=== PATIENT | male | born 1965 | race Caucasian/White ===

== ENCOUNTER → 2018-11-28 | Outpatient (CLI) | payer SELFPAY ==
[2018-11-28 09:32] VITALS: BMI 29.3
[2018-11-28 12:16] LABS: Hematocrit 46.8 % (40-54); Hemoglobin 16.1 g/dL (13.0-16.5); Mean Corp Hgb Conc 34.4 g/dL (32-36); Mean Corpuscular Hgb 29.8 pg (27.0-32.0); Mean Corpuscular Volume 86.7 fL (80-94); Mean Platelet Vol. 10.1 fl (6.2-12.0); Platelet Count 200 K/mm3 (150-450); RBC Distribution Width CV 12.6 % (11.6-14.6); RBC Distribution Width SD 39.5 fl (35.1-43.9); White Blood Count 6.1 K/mm3 (4.4-11.0)
[2018-11-28 12:53] LABS: ALB/GLOB Ratio 1.1 RATIO (0.9-2.4); AST(SGOT) 18 U/L (15-37); Alanine Aminotransfer ALT/SGPT 29 U/L (16-61); Albumin, Serum 3.7 g/dL (3.2-5.0); Alkaline Phosphatase 66 U/L (45-117); Anion Gap 6 (5-15); BUN 11 mg/dL (7-18); BUN/Creat Ratio 9.4 RATIO (10-20); Calcium,Total 8.7 mg/dL (8.5-10.1); Chloride 109 mmol/L (98-107); Creatinine, Serum 1.17 mg/dL (0.70-1.30); EST Glomerular Filtration Rate 69 mL/min (>60); Est Glom Filt Rate - Afr Amer 83 mL/min (>60); Globulin 3.3 g/dL (2.2-4.2); Glucose 94 mg/dL (74-106); Potassium 4.2 mmol/L (3.5-5.1); Sodium Level 141 mmol/L (136-145); Thyroid Stim Hormone (TSH) 1.52 uIU/mL (0.358-3.74)
[2018-12-01 20:07] LABS: Testosterone, Free 19.52 ng/dL (5.00-21.00)
[2018-12-02 09:29] LABS: Testosterone, % Free 4.56 % (1.50-4.20); Testosterone, Total 428 ng/dL (264-916)
== END | disposition home or self-care (01) ==
LOC: BIMLAB 09:54
PROVIDERS: PCP Family Medicine; Visit Provider Nurse Practitioner Family
DX: N52.9 Male erectile dysfunction, unspecified (principal)
CPT/HCPCS: 36415; 80053; 84402; 84403; 84443; 85027

== ENCOUNTER 2019-04-22 10:18 | Emergency (ER) | payer SELFPAY ==
[2019-01-30 10:31] VITALS: BMI 29.3
[2019-04-22 10:19] VITALS: BP 145/83; PULSE 61; RESP 18; TEMP 36.6; O2SAT 98; BMI 27.2
--- NOTE | 2019-04-22 11:16 | ED.VIS.GEN ---
History of Present Illness Chief Complaint: General Illness Informant: Patient Onset: Days Maximum Severity: Mild Narrative: The patient complains of external hemorrhoid for the last few days he has had this process before, he is used hemorrhoidal H cream with no improvement he feels if this might be getting larger,. He is had no trauma to the area no history of rectal abscess, prior colonoscopies unremarkable, the last time he had this it was totally thrombosed and he had it excised he has no abdominal pain no other complaints no past history as above Past Medical History - Allergies and Home Meds Allergies/Adverse Reactions: Allergies No Known Allergies Allergy (Verified 04/22/19 10:21) Primary Care Physician: Aric Prieto DO [Primary Care Provider] - Past Medical History: - Smoking Status: Never smoker Review of Systems ROS: - As above General: Denies: Chills, Fever, Sweats Eyes: Denies: Visual changes - bilaterally, Diplopia ENT: Denies: Rhinorrhea, Sore throat Cardiovascular: Denies: Chest pain, Palpitations Respiratory: Denies: Dyspnea, Cough, Dyspnea on exertion Gastrointestinal: Reports: - - Complaint is rectal pain from the hemorrhoid. Denies: Abdominal pain, Nausea, Vomiting, Diarrhea, Melena, Hematochezia Genitourinary: Denies: Dysuria, Hematuria, Frequency Musculoskeletal: Denies: Back pain, Extremity Pain Skin: Denies: Rash, Wounds Neurological: Denies: Headache, Weakness, Numbness Physical Exam Vital Signs/Narrative: Vital Signs Temp Pulse Resp BP Pulse Ox 04/22/19 10:19 98 F 61 18 145/83 H 98 General: Well nourished, Well developed, No Acute Distress Head: Normocephalic, Atraumatic Eyes: Perrl, EOMI ENT: Moist mucous membranes, No rhinorrhea Neck: Supple, Nontender Cardiovascular: Regular rate, Regular rhythm, No murmurs Respiratory: No distress, CTA bilaterally, Chest nontender Abdomen: Soft, Nontender, Nondistended, Normal bowel sounds Rectal: - - Does have a soft hemorrhoid in the rectal area he was not put through rectal exam as I was concerned this would cause him increasing pain, he indicates having normal bowel output through his rectum with no blood there is no abscess apparent as this appears to be a typical hemorrhoid it is not thrombosed is soft Back: Nontender, Normal Inspection Extremities: Nontender, No edema Skin: Normal color, No rash Neurological: Alert, Oriented x3, Cranial nerves II-XII grossly intact, Normal Strength, Normal Sensation Psychological: Normal affect, Normal Mood Diagnostic/Tx/Re-eval - Medical Decision Making I had a long conversation with the patient I explained the nature of this condition, he will be started on anti-Anusol HC suppositories sitz bath's he was given morphine here, he understands that to have this treated it is optimal that he see a surgeon he is given the referral to on-call surgery Dr. Cole and return for change in symptoms ED Disposition - Plan for ED Patient: Diagnosis: Hemorrhoids Instructions: Treating Hemorrhoids: Self-Care, Understanding Hemorrhoids, ANUSOL-HC Suppositories Prescriptions: Hydrocortisone [Anusol Hc] 25 mg RECTAL TID PRN #14 suppos. Prescription Printed Naproxen [Naprosyn] 500 mg PO BID PRN #14 tab Prescription Printed Referrals: Aric Prieto DO [Primary Care Provider] -
[2019-04-22] MEDS: Acetaminophen 500 MG Tablet 1000 MG PO (11:32)
[2019-04-22 11:38] VITALS: BP 129/81; PULSE 63; RESP 17
== END 2019-04-22 11:40 | disposition home or self-care (01) ==
LOC: ED 11:23
PROVIDERS: Emergency Provider Emergency Medicine; PCP Family Medicine
DX: K64.4 Residual hemorrhoidal skin tags (principal)
CPT/HCPCS: 99283

== ENCOUNTER 2019-05-29 07:54 | Day surgery (SDC) | payer OTHER, SELFPAY ==
[2019-05-07 09:16] VITALS: BMI 27.2
--- NOTE | 2019-05-07 09:30 | HP_ITS ---
Intake Vital Signs 05/07/19 BMI 27.2 05/07/19 Height 6 ft 5 in 05/07/19 Weight: 230 lb 4 oz 05/07/19 BMI 27.3 05/07/19 BP 121/76 H 05/07/19 Blood Pressure Location Rt brachial 05/07/19 Position Sitting 05/07/19 Respiration 18 05/07/19 Pulse 60 05/07/19 Pulse Oximetry (%) 98 Intake Visit Reasons: Hemorrhoids Chief Complaint: hemorrhoids Front Worker Required: No Is patient in pain?: No Allergies No Known Allergies Allergy (Verified 05/07/19 09:15) Medications loratadine 10 mg tablet 10 mg PO DAILY PRN 11/28/18 [History Confirmed 05/07/19] Albuterol Inhaler [Ventolin Hfa (SP)] 1 - 2 puff INHALATION Q4H PRN PRN 04/22/19 [History Confirmed 05/07/19] Hydrocortisone [Anusol Hc] 25 mg RECTAL TID PRN #14 suppos. 04/22/19 [Rx Confirmed 05/07/19] aspirin 81 mg tablet,delayed release 81 mg PO DAILY 05/07/19 [History Confirmed 05/07/19] PFSH Medical History (Updated 05/07/19 @ 09:13 by Mindy Hutchins) SOB (shortness of breath) (Acute) Seasonal allergies (Chronic) Hemorrhoid (Acute) Hay fever (Acute) Surgical History (Updated 05/07/19 @ 09:13 by Mindy Hutchins) History of colonoscopy (Acute ~2011) Family History Mother Breast cancer Colon cancer Father Heart disease Grandmother Diabetes Social History (Updated 05/07/19 @ 09:[address] Fernando Ritchie MD) Smoking Status: Never smoker alcohol intake: current alcohol intake frequency: a few times a week Alcohol type: beer substance use type: does not use what type of physical activity do you participate in: yoga frequency: 3-4 times per week HPI HPI HPI: AJ GRANADO is a 53 M who presents to the office today for HPI HPI Surgical H&P: Yes HPI: AJ GRANADO is a 53 M who presents to the office today for hemorrhoids. The patient reports that 2 weeks ago he was in the emergency room and had a very large hemorrhoid that was very painful. Since then it is shrunken and is not causing him pain anymore. He is not having a bleeding per rectum. Patient also reports that he has a family history of colon cancer in his mother diagnosed at age 54. Patient had a colonoscopy about 7 years ago. This was normal. ROS General General: No weight change, appetite, fatigue, colon cancer, breast cancer or weakness HEENT HEENT: No difficulty swallowing, eye injury, eye surgery, swollen glands or hoarseness Endo Endocrine: No thyroid disease, diabetes mellitus, thyroid cancer, Hair loss, heat intolerance or cold intolerance Cardio Cardiovascular: No murmur, pacemaker, heart disease, atrial fibrillation, high blood pressure, heart attack, heart stent, palpitations, shortness of breat with exertion or chest pain Psych Psychiatric: No depression, anxiety or hearing voices Resp Respiratory: No shortness of breath, No sleep apnea, No cough, No COPD, No asthma, No emphysema, No wheezing Gastro Gastrointestinal: No abdominal pain, No nausea or vomiting, No diarrhea, No constipation, No blood in stool, No acid reflux, Yes hemorrhoids, No ulcers, No gallbladder problem, No black,tarry stools Dwight Hematologic: No blood thinners, No blood disorders, No bleeding, No anemia, No blood clots Neuro Neurologic: No weakness Exam Const General: cooperative Orientation: alert, oriented x3 Resp Effort & Inspection: normal respiratory effort Auscultation: clear to auscultation bilaterally Cardio Rate: regular rate Rhythm: regular rhythm Heart Sounds: no murmurs GI Inspection: non-distended Palpation: soft, nontender Other: On rectal exam the patient has small thrombosis of external hemorrhoids which are nontender Assessment & Plan Problems 1. Hemorrhoids, unspecified hemorrhoid type K64.9 2. Family history of malignant neoplasm of colon in first degree relative diagnosed when younger than 60 years of age Z80.0 Plan The patient has 2 external thrombosed hemorrhoids. The blood clot in each of these are less than 1 cm in diameter. There is no tenderness or skin breakdown. The patient reports no bleeding. He says these have been improving and he is not currently having any pain. I did offer him excision but he would like to wait and see if they resolve fully. I do recommend that the patient have a surveillance colonoscopy. As the patient's family member was diagnosed under age 60 it is recommended that he repeat colonoscopies every 5 years. I explained endoscopy in detail to the patient. I explained the risks including but not limited to stroke or heart attack with anesthesia, perforation of the GI tract, bleeding, infection. I explained that any of these could necessitate further emergency surgery. The patient understands and all questions were answered sufficiently. The patient wishes to proceed with procedure. Fernando Ritchie MD Pager: [facility] [address] [place] [address], [address] [place] [address] Office: Orders Orders: Colonoscopy Today K64.9, Z80.0 Coding Level of Care Code Off vis,new,level 3 Diagnoses Hemorrhoids, unspecified hemorrhoid type K64.9 ??Hemorrhoid type: unspecified Family history of malignant neoplasm of colon in first degree relative diagnosed when younger than 60 years of age Z80.0 05/07/19 0931 <Electronically signed by Fernando hsu MD> Date _ Fernando Ritchie MD I have re-examined the patient. There are no clinical changes since date of exam.
[2019-05-29] VITALS (7 sets, daily range): BP systolic 101–128; BP diastolic 63–80; PULSE 59–74; RESP 16–18; TEMP 36.3–37.1; O2SAT 95–97; BMI 26.5
[2019-05-29] MEDS: Lactated Ringers 1,000 ML 100 ML IV (08:37)
--- NOTE | 2019-05-29 09:20 | OP.COLON_ITS ---
Patient Name: Simon Lim Procedure Date: 05/29/2019 8:48 AM Date of : 1965 Age: 53 Procedure: Colonoscopy Indications: Screening in patient at increased risk: Colorectal cancer in mother before age 60 Providers: Fernando Ritchie MD Referring MD: Fernando Ritchie MD Medicines: Monitored Anesthesia Care Patient Profile: This is a 53 year old male. Refer to note in patient chart for documentation of history and physical. Last Colonoscopy: several years ago. Complications: No immediate complications. Estimated blood loss: Minimal. Procedure: Pre-Anesthesia Assessment: - Prior to the procedure, a History and Physical was performed, and patient medications and allergies were reviewed. The patient's tolerance of previous anesthesia was also reviewed. The risks and benefits of the procedure and the sedation options and risks were discussed with the patient. All questions were answered, and informed consent was obtained. Prior Anticoagulants: The patient has taken no previous anticoagulant or antiplatelet agents. After reviewing the risks and benefits, the patient was deemed in satisfactory condition to undergo the procedure. After I obtained informed consent, the scope was passed under direct vision. Throughout the procedure, the patient's blood pressure, pulse, and oxygen saturations were monitored continuously. The pediatric colonoscope was introduced through the anus and advanced to the cecum, identified by appendiceal orifice and ileocecal valve. The colonoscopy was performed without difficulty. The patient tolerated the procedure well. The quality of the bowel preparation was good. Scope In: 8:59:38 AM Scope Withdrawal Time 0 hours 6 minutes 7 seconds Scope Out: 9:17:46 AM Total Procedure Duration Time 0 hours 18 minutes 8 seconds Findings: The entire examined colon appeared normal on direct and retroflexion views. Impression: - The entire examined colon is normal on direct and retroflexion views. - No specimens collected. Recommendation: - Discharge patient to home. - Resume previous diet. - Continue present medications. - Repeat colonoscopy in 5 years for screening purposes. Procedure Code(s): --- Professional --- 25987, Colonoscopy, flexible; diagnostic, including collection of specimen(s) by brushing or washing, when performed (separate procedure) Diagnosis Code(s): --- Professional --- Z80.0, Family history of malignant neoplasm of digestive organs CPT copyright 2017 [employer]. All rights reserved. The codes documented in this report are preliminary and upon data coder operator review may be revised to meet current compliance requirements. Fernando Ritchie MD 05/29/2019 9:20:21 AM This report has been signed electronically. Number of Addenda: 0 Note Initiated On: 05/29/2019 8:48 AM
--- NOTE | 2019-05-29 09:20 | OP.CCLET_ITS ---
05/29/2019 Aric Prieto Re : Colonoscopy procedure for Simon Lim Dear Dr. Prieto This procedure was performed on Wednesday, May 29, 2019. My impressions and recommendations are as follows: Impressions : - The entire examined colon is normal on direct and retroflexion views. - No specimens collected. Recommendations : - Discharge patient to home. - Resume previous diet. - Continue present medications. - Repeat colonoscopy in 5 years for screening purposes. My findings are described in the full procedure note, which is enclosed. If I can be of further assistance, please feel free to contact me at Doctor phone number(s): , Work: . Sincerely, Fernando Ritchie MD 05/29/2019 9:20:21 AM This report has been signed electronically.
== END 2019-05-29 09:57 | disposition home or self-care (01) ==
LOC: EN 07:55 → AC 07:55
PROVIDERS: PCP Family Medicine; Referring Provider Surgery; Visit Provider Surgery
PROC: 0DJD8ZZ Inspection of Lower Intestinal Tract, Via Natural or Artificial Opening Endoscopic (ICD-10-PCS; CPT 45378; principal; 2019-05-29 08:55)
DX: Z12.11 Encounter for screening for malignant neoplasm of colon (principal); K64.9 Unspecified hemorrhoids; Z80.0 Family history of malignant neoplasm of digestive organs
CPT/HCPCS: 45378; J7120; J2405

== ENCOUNTER 2022-02-05 15:30 | Outpatient (RCR) | payer OTHER, SELFPAY ==
--- NOTE | 2022-01-04 18:16 | HP.PTEVAL ---
Patient's Visit Information AJ GRANADO is a 56 year old M referred to Physical Therapy by HEMAL Long with a diagnosis of MUSCLE SPASM. Date of Evaluation: 01/04/22 Physical Therapist: Cuong Vickers, PT, Cert MDT, OCS - Visit Plan Frequency: 2x /Week Duration: 4 Weeks Plan: PT INTERVENTIONS CERVICAL ROM ,POSTURAL EX'S /FLEXABLITY ,THORACIC MOBILITY ,MANUAL THERAPY , STRENGTHENING AND MODALTIES MODALTIES TO INCLUDE ICTX 17# -25# - Subjective This 56 y/o male presents to physical therapy with neck pain and spasms. Patient has has cervical pain several years. Patient is active with working out and housework . Patient DR recommended PT thought muscle tension . Recommended muscle relaxer. Denies paresthesia/tingling . Pain located right cervical spine radiating to UT . Aggravating factors sleeping on right turning neck right. Thus sleeping is affected . Alleviating factors rest and muscle relaxer. Denies WICK/dizziness/tinnitus. No trauma . No prior treatment. No prior diagnostics. Patient symptoms affects QOL and function. SOCIAL: . 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 NEURO: denies paresthesia/tingling ,reflexes C5-6-7 2/3. PALAPTION: tender UT/levator /paraspinals right. BUE AROM: WFL. MMT: grossly 5/5. CERVICAL ROM: flexion WFL , extension mod loss ,right rotation mod loss right left min loss with pain right ,lateral flexion mod loss ,retraction min loss - Special Tests C/S Radiculapathy - Left Upper limb tension test: Negative C/S Radiculapathy - Right Upper limb tension test: Negative C/S Radiculapathy - Left Spurlings: Negative C/S Radiculapathy - Right Spurlings: Positive C/S Radiculapathy - Left Cervical distraction: Negative C/S Radiculapathy - Right Cervical distraction: Negative C/S Radiculapathy - Left Relief test: Negative C/S Radiculapathy - Right Relief test: Negative Sharp Mercedes: Negative Vertebral Artery Test: Negative Alar Ligament Test: Negative - Balance/Special Test Scores Oswestry Neck Score: 13 - Goals Goal 1:: I with HEP for cervical spine Goal Time Frame: 4-6 Weeks Goal 2:: Patient to improve cervical ROM for function of recovery min loss with rotation to drive car Goal Time Frame: 4-6 Weeks Goal 3:: Patient to demonstrate 50% improvement with improved function with less pain Goal Time Frame: 4-6 Weeks Goal 4:: Patient to improve neck oswestry score by 5 points or > to improve function and QOL Goal Time Frame: 4-6 Weeks - Rehabilitation Potential Physical Therapy Diagnosis: This patient has possible right lateral stenosis with with pain right UT with rotation with pain with positioning and motion testing thus benefit from skilled PT Rehabilitation Potential: Good - Anticipated Interventions Patient/Client Instruction: Educate patient on: Condition, Plan of Care For the Purpose of:: To decrease pain, To increase ROM, To improve muscle performance and motor function, To improve ability to perform ADL's, To increase tolerance to activity/condition/position, To improve ability of physical actions for home/community/work/leisure, To improve health of tissue, To decrease soft tissue restriction, To increase flexibility/ROM Therapeutic Exercise to Include: Strength training, Postural training, Flexibilty training, Passive ROM, Active ROM For the Purpose of:: To decrease pain, To increase ROM, To improve muscle performance and motor function, To increase tolerance to activity/condition/position, To improve ability of physical actions for home/community/work/leisure, To improve health of tissue, To decrease soft tissue restriction, To increase flexibility/ROM, To prevent re-injury Manual Therapy Techniques to Include: Mobilization, Soft tissue mobilization Comment: CERVICAL/LEVATOR For the Purpose of:: To increase ROM, To improve nutrient delivery to tissue, To increase oxygenation perfusion, To improve health of tissue, To decrease soft tissue restriction TENS: Yes IF ES: Yes Thermo therapy (hot pack): Yes Ultrasound (thermal/non thermal): Yes Intermittent cervical traction: Yes For the Purpose of:: To decrease pain, To increase ROM, To improve health of tissue, To decrease soft tissue restriction Thank you for the opportunity to evaluate your patient. For Medicare and Medicare HMO plans, please review the plan of care and approve it. It will need to be FAXED BACK to us at [phone] for Medicare purposes. For Medicare only, by signing this I certify the plan of care. Please let me know if there are questions or concerns regarding this plan of care. Physician Signature: Date:
--- NOTE | 2022-03-26 11:22 | HP.PT.NRP ---
AJ GRANADO was seen in my office for initial evaluation on 01/04/22. The following Plan of Care was established for this patient: Initial Frequency: 2x /Week Initial Duration: 4 Weeks Patient/Client Instruction: Educate patient on: Condition, Plan of Care For the Purpose of:: To decrease pain, To increase ROM, To improve muscle performance and motor function, To improve ability to perform ADL's, To increase tolerance to activity/condition/position, To improve ability of physical actions for home/community/work/leisure, To improve health of tissue, To decrease soft tissue restriction, To increase flexibility/ROM Therapeutic Exercise to Include: Strength training, Postural training, Flexibilty training, Passive ROM, Active ROM For the Purpose of:: To decrease pain, To increase ROM, To improve muscle performance and motor function, To increase tolerance to activity/condition/position, To improve ability of physical actions for home/community/work/leisure, To improve health of tissue, To decrease soft tissue restriction, To increase flexibility/ROM, To prevent re-injury Manual Therapy Techniques to Include: Mobilization, Soft tissue mobilization Comment: CERVICAL/LEVATOR For the Purpose of:: To increase ROM, To improve nutrient delivery to tissue, To increase oxygenation perfusion, To improve health of tissue, To decrease soft tissue restriction TENS: Yes IF ES: Yes Thermo therapy (hot pack): Yes Ultrasound (thermal/non thermal): Yes Intermittent cervical traction: Yes For the Purpose of:: To decrease pain, To increase ROM, To improve health of tissue, To decrease soft tissue restriction This patient was last seen in our office . Pertinent comments regarding their Physical therapy will appear below: At this point I will be discontinuing this patient from physical therapy. I would be happy to see this patient again in the future if found appropriate by the physician. Thank you! Cuong Vickers, PT, Cert MDT, OCS Balance/Gait/Functional tests - Balance/Special Test Scores Oswestry Neck Score: 1
== END 2022-02-05 19:00 | disposition home or self-care (01) ==
LOC: PT 15:30
PROVIDERS: PCP Family Medicine; Referring Provider Physician Assistant; Visit Provider Physician Assistant
DX: M62.838 Other muscle spasm (principal)
CPT/HCPCS: 97012; 97035; 97162

== ENCOUNTER → 2022-08-18 | Outpatient (CLI) | payer OTHER, SELFPAY ==
--- NOTE | 2022-08-18 08:18 | CT_ITS ---
STUDY: CT ABDOMEN AND PELVIS WITH CONTRAST REASON FOR EXAM: Male, 56 years old. Right buttock pain. RADIATION DOSAGE (If Supplied By Facility): CTDIvol = ( 17.53 ) mGy, DLP = ( 1284.55 ) mGycm TECHNIQUE: Transaxial images were obtained from the dome of the diaphragm to the symphysis pubis without oral contrast. IV 100mL Isovue-300 was administered. Sagittal and coronal images were reconstructed. Individualized dose optimization techniques were used for this CT. COMPARISON: None. FINDINGS: The visualized lung bases are unremarkable. The visualized portions of the heart are within normal limits. Normal liver. Normal gallbladder and extrahepatic biliary system. Normal spleen. Normal pancreas. Normal bilateral adrenal glands. Normal right kidney. Normal left kidney. Normal visualized stomach. Normal small intestine. Normal colon. The appendix is visualized and appears normal. Normal abdominal aorta. Normal inferior vena cava. Normal retroperitoneum. Normal urinary bladder. There is a small umbilical hernia containing fat. Mild degree of disc space narrowing at the L5-S1 level. CT/Abdomen/Pelvis W IV Cont ONLY IMPRESSION: No acute abnormality is seen. Electronically Signed: Sudhakar Cevallos MD at 15:43 EDT ,
== END | disposition home or self-care (01) ==
PROVIDERS: PCP Family Medicine; Referring Provider Surgery; Visit Provider Surgery
DX: K40.90 Unilateral inguinal hernia, without obstruction or gangrene, not specified as recurrent (principal)
CPT/HCPCS: 74177; Q9967; A4216

== ENCOUNTER → 2023-04-20 | Outpatient (CLI) | payer OTHER, SELFPAY ==
[2023-04-20 16:56] LABS: ALB/GLOB Ratio 1.2 RATIO (0.9-2.4); AST(SGOT) 16 U/L (15-37); Alanine Aminotransfer ALT/SGPT 20 U/L (16-61); Alkaline Phosphatase 68 U/L (45-117); Anion Gap 6 (5-15); BUN 14 mg/dL (7-18); BUN/Creat Ratio 10.9 RATIO (10-20); Calcium,Total 9.1 mg/dL (8.5-10.1); Chloride 107 mmol/L (98-107); Creatinine, Serum 1.28 mg/dL (0.70-1.30); EST Glomerular Filtration Rate 61 mL/min (>60); Est Glom Filt Rate - Afr Amer 74 mL/min (>60); Globulin 3.2 g/dL (2.2-4.2); Glucose 100 mg/dL (74-106); Protein, Total 7.2 g/dL (6.4-8.2); Sodium Level 138 mmol/L (136-145)
== END | disposition home or self-care (01) ==
PROVIDERS: PCP Family Medicine; Visit Provider Family Medicine
DX: Z00.00 Encounter for general adult medical examination without abnormal findings (principal)
CPT/HCPCS: 36415; 80053; 84153

== ENCOUNTER → 2024-07-17 | Outpatient (CLI) | payer OTHER, SELFPAY ==
[2024-07-17 17:25] LABS: ALB/GLOB Ratio 1.6 RATIO (0.9-2.4); AST(SGOT) 19 U/L (<=37); Alanine Aminotransfer ALT/SGPT 12 U/L (<=46); Albumin, Serum 4.1 g/dL (3.4-4.8); Alkaline Phosphatase 62 U/L (40-129); Anion Gap 11 (5-15); BUN 19 mg/dL (4-19); BUN/Creat Ratio 14.5 RATIO (10-20); Calcium,Total 9.2 mg/dL (7.6-11.0); Carbon Dioxide 22.1 mmol/L (21.0-32.0); Chloride 104 mmol/L (98-108); Creatinine, Serum 1.28 mg/dL (0.70-1.20); EST Glomerular Filtration Rate 64 (>60); Globulin 2.5 g/dL (2.2-4.2); Glucose 124 mg/dL (70-99); Potassium 4.3 mmol/L (3.3-5.1); Protein, Total 6.6 g/dL (5.9-8.4); Sodium Level 137 mmol/L (133-145); Total Bilirubin 0.55 mg/dL (0.00-1.30)
== END | disposition home or self-care (01) ==
LOC: BIMLAB 14:35
PROVIDERS: PCP Family Medicine; Referring Provider Family Medicine; Visit Provider Family Medicine
DX: Z00.00 Encounter for general adult medical examination without abnormal findings (principal)
CPT/HCPCS: 36415; 80053

== ENCOUNTER 2024-08-31 10:53 | Day surgery (SDC) | payer OTHER, SELFPAY ==
[2024-08-31] VITALS (9 sets, daily range): BP systolic 94–142; BP diastolic 69–88; PULSE 54–75; RESP 16; TEMP 36.2–36.6; O2SAT 92–98; BMI 27.1
[2024-08-31] MEDS: Lactated Ringers 1,000 ML 15 ML IV (11:28)
--- NOTE | 2024-08-31 11:46 | PRE.ANES_ITS ---
ASA Classification* ASA Classification ASA Classification: 2 Assessment & Plan Anesthesia* Anesthesia Assessment Anesthesia Assessment: Discussed sedation and/or anesthesia options, risks, benefits, and alternatives with patient/parents/legal guardian/POA. Questions invited. The patient/parents/legal guardian/POA seems to understand and agrees to proceed with anesthesia plan. Reviewed the physical assessment, medical history, allergy history and patient home medications list prior to surgery/procedure/anesthetic and documented any changes. Performed airway and anesthesia risk assessments. Anesthesia Type Anesthesia Type: MAC History Source History Obtained from:: Patient and Chart Anesthesia Focused Assessment* Temperature: 97.9 F Pulse Rate: 63 Blood Pressure: 142/88 Respiratory Rate: 16 Pulse Ox: 98 Oxygen Delivery Method: Room Air Airway Assessment Mouth opens: >3 cm Mallampati Score: III Teeth Condition: Intact Neck Range of motion (ROM): Limited ROM (Slight decrease in extension) Focused Labs Anesthesia Preop lab: CBC WBC 6.1 K/mm3 (4.4-11.0) 11/28/18 09:55 11/28/18 RBC 5.40 M/mm3 (4.6-6.2) 11/28/18 09:55 11/28/18 Hgb 16.1 g/dL (13.0-16.5) 11/28/18 09:55 11/28/18 Hct 46.8 % (40-54) 11/28/18 09:55 11/28/18 Plt Count 200 K/mm3 (150-450) 11/28/18 09:55 11/28/18 CHEMISTRY Potassium 4.3 mmol/L (3.3-5.1) 07/17/24 14:36 07/17/24 Sodium 137 mmol/L (133-145) 07/17/24 14:36 07/17/24 BUN 19 mg/dL (4-19) 07/17/24 14:36 07/17/24 Creatinine 1.28 mg/dL (0.70-1.20) H 07/17/24 14:36 Glucose 124 mg/dL (70-99) H 07/17/24 14:36 07/17/24 TSH 1.52 uIU/mL (0.358-3.74) 11/28/18 09:55 COAG Pre-Assessment Diagnosis/Proposed Procedure Planned Operative Procedure(s): CSCOPE Anesthesia History 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 When Was Last Pacemaker Check QUESTION #4 FULL TEXT: You/Your Family Experience fever (hyperthermia) with Anesthesia Last Oral Intake Last Oral intake: Last Oral Intake NPO since Meds taken in AM with sips of No 08/31/24 11:24 water? Meds patient instructed to take am of surgery Any additional information?: Yes NPO since: 08:00 (Patient finished prep at 8 AM.) Meds taken in AM with sips of water?: No PONV PONV - supervisor slitting and shipping: PONV - supervisor slitting and shipping Female No 08/29/24 10:51 HX of Motion Sickness No 08/29/24 10:51 HX of N/V After Surgery No 08/29/24 10:51 Non-Smoker Yes 08/29/24 10:51 Duration of Surgery greater No 08/29/24 10:51 than 60 minutes Number of Risk Factors 1 08/29/24 10:51 PONV Score Low Risk 08/29/24 10:51 Height & Weight Height & Weight: Anesthesia: Height & Weight Height 6 ft 5 in 08/31/24 11:24 Weight: 104 kg 08/31/24 11:24 Body Mass Index (BMI) 27.1 08/31/24 11:24 Respiratory Assessment Respiratory Assessment - supervisor slitting and shipping: Respiratory Tract Infection Hx - supervisor slitting and shipping Hx Respiratory Tract Infection No 08/29/24 10:51 STOP Sleep Apnea STOP Sleep Apnea - supervisor slitting and shipping: STOP Sleep Apnea - supervisor slitting and shipping Hx Hypertension No 08/29/24 10:51 Hx Sleep Apnea No 08/29/24 10:51 CPAP BIPAP Do you snore loudly (louder No 08/29/24 10:51 than talking or can be heard Do you often feel tired/ No 08/29/24 10:51 fatigued/ sleepy during daytime? Has anyone observed you stop No 08/29/24 10:51 breathing during sleep? STOP Results Negative 08/29/24 10:51 QUESTION #5 FULL TEXT : Do you snore loudly (louder than talking or can be heard through closed doors)? 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 Specify any problems Hx of Preganancy in last 3 N/A 08/29/24 10:51 Months Nurse Filling Out Transfusion NBUCHER 08/29/24 10:51 & Questions: Date: 08/29/24 08/29/24 10:51 Time: 10:51 08/29/24 10:51 Patient unable to answer at this time (ie. confused, unrespo /Reproduction History /Reproductive History - supervisor slitting and shipping: /Reproductive Hx- supervisor slitting and shipping Hx Now No 08/29/24 10:51 Gestational Age (in weeks): EDC: Hx Hx Para Hx Section SAB No 08/29/24 10:51 Active Medications Active Medications: Current Medications Generic Name Dose Route Start Last Admin Trade Name Freq PRN Reason Stop Dose Admin Lactated Ringer's 1,000 mls @ 15 mls/hr 08/31/24 11:00 08/31/24 11:28 IV 15 mls/hr .Q48H JANE Administration PFSH Medical History Wears glasses Non-smoker Family history of colon cancer in mother Right inguinal hernia Chronic right hip pain Hemorrhoid Hay fever SOB (shortness of breath) Seasonal allergies Home Medications ?Medication ?Instructions ?Recorded ?Last Taken ?Type NK 06/14/24 Unknown History Allergy/AdvReac Type Severity Reaction Status Date / Time No Known Allergies Allergy Verified 08/31/24 11:22 Family History Mother Breast cancer Colon cancer, Onset Age: 56 Father Heart disease Grandmother Diabetes Brother Colon polyps Surgical History History of oral surgery History of colonoscopy (~2011) Social History adopted: No household members: spouse number of children: 1 current occupational status: employed 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
--- NOTE | 2024-08-31 12:10 | H&P.OPEN ---
HPI - General HPI Narrative AJ GRANADO, is a 58 M who presents for surveillance colonoscopy. His last colonoscopy was 5 years ago and was normal. He has colonoscopies every 5 years due to maternal family history of colon cancer under age 60. He denies abdominal pain or blood in the stool. [facility] Medical History Wears glasses Non-smoker Family history of colon cancer in mother Right inguinal hernia Chronic right hip pain Hemorrhoid Hay fever SOB (shortness of breath) Seasonal allergies Home Medications ?Medication ?Instructions ?Recorded ?Last Taken ?Type NK 06/14/24 Unknown History Allergy/AdvReac Type Severity Reaction Status Date / Time No Known Allergies Allergy Verified 08/31/24 11:22 Family History Mother Breast cancer Colon cancer, Onset Age: 56 Father Heart disease Grandmother Diabetes Brother Colon polyps Surgical History History of oral surgery History of colonoscopy (~2011) Social History adopted: No household members: spouse number of children: 1 current occupational status: employed 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/ [place] pets and animals: No sexually active: Yes Smoking Status: Never smoker alcohol intake: current alcohol intake frequency: a few times a week Alcohol type: beer substance use type: does not use caffeine: Yes (2) Type: coffee what type of physical activity do you participate in: yoga frequency: 3-4 times per week do you feel safe at home: Yes Past Medical/Surgical History Planned Operation Planned Operative Procedure(s): CSCOPE S.O.S: No Previous Hospitalizations/Surgeries HX Hospitalizations: No HX of Surgeries: cscope Any Problems With Anesthesia: No You/Your Family Experience Fever (Hyperthermia) With Anes: No Cholinesterase deficiency: No Cardiovascular Hx Chest Pain within Last 2 months: No Hx of Irregular Heartbeat and/or Afib: No Hx Heart Attack: No Hx Congestive Heart Failure: No Hx Rheumatic Fever: No Hx Hypertension: No Hx Internal Defibrillator: No Hx Pacemaker: No Hx Cardiac Catheterization: No Hx Cardiac Surgery/Stents/Etc.: No Hx Stress Test: No Hx Pain in Legs when Walking/Leg Cramps: No Respiratory Chronic Cough: No HX of Shortness of Breath: No (sob occ prn inhaler) Hoarseness: No Hx Chronic Obstructive Pulmonary Disease (COPD): No Hx Asthma: No Hx Emphysema: No Hx Sleep Apnea: No Hx Respiratory Tract Infection/Cold (presently): No Do You Snore Loudly (louder than talking or can be heard): No Do You Often Feel Tired/ Fatigued/ Sleepy Dring Daytime?: No Has Anyone Observed You Stop Breathing During Sleep?: No Result (for STOP score): Negative Hx Smoking: No Smoking Status: Never smoker Gastrointestinal Hx Gastrointestinal Disorders: No Hx Gastrointestinal Bleed: No Hx Ulcer: No Hx Hiatal Hernia: No Difficulty Chewing/Swallowing: No Special diet followed at home: No Hx Unplanned Weight Loss of 20#: No HX Unplanned Weight Gain of 20#: No Neurological Hx Seizures: No HX Syncope/Blackout Spells/Unconsciousness: No Hx Transient Ischemic Attacks (TIA): No Hx Multiple Sclerosis: No Hx Parkinson's Disease: No Hx Head/Neck Injury: No Hx Headaches: Yes (occ) Hx Back Injury/Pain: No Recent Onset of Speech Difficulty: No Restless Legs: No Does patient have nerve stimulator: No Blood Disorder Hx Leukemia: No Bleeding Tendencies: No Hx Deep Vein Thrombosis: No Hx High Cholesterol: No Blood Transmitted Disease: No Hx Hepatitis: No Hx Cirrhosis: No Hx Anemia: No Hx Blood Disorders: No Reproduction : No Genitourinary Hx Renal Disease: No Musculoskeletal Hx Arthritis: No Hx Rheumatoid Arthritis: No Hx Gout: No Recent Onset of an Orthopedic Problem: No Endocrine Hx Diabetes: No Thyroid Disease: No Hx Steroid Therapy: No Psycho/Social Hx Substance Use: No Hx Alcohol Use: Yes (occ) Hx Anxiety: No Hx Depression: No Mental Illness: No Hx Dementia: No Miscellaneous Hx Cancer: No Recent Exposure to Contagious Disease: No Hx of C-Diff: No Any Loose Teeth: No Allergies No Known Allergies Allergy (Verified 08/31/24 11:22) Discharge Is Pt Admitted From a Snf, or a Senior Living: No After D/C, Where Do you Plan to Go: Return Home Vital Signs Vital Signs Vital Signs: 08/31/24 11:24 08/31/24 11:24 05/30/25 11:52 Temperature 97.9 F 97.9 F Temperature Source Temporal Pulse Rate 63 63 Respiratory Rate 16 16 Respiratory Pattern Normal Blood Pressure 142/88 H 142/88 H Blood Pressure Mean 106 Blood Pressure Source Monitor Blood Pressure Position Sitting Blood Pressure Location Right Arm Pulse Ox 98 98 Oxygen Delivery Method Room Air Room Air Weight Weight: 229 lb 4.492 oz Body Mass Index (BMI) 27.1 Physical Exam Const alert and oriented x3 HEENT normocephalic Eyes PERRL Resp normal respiratory effort and normal air movement Cardio regular rate and regular rhythm GI soft to palpation, non-tender and non-distended Extremity normal to inspection Assessment & Plan Assessment/Plan (1) Encounter for screening for malignant neoplasm of colon: PLAN: I explained endoscopy in detail to the patient. I explained the risks including but not limited to stroke or heart attack with anesthesia, perforation of the GI tract, bleeding, infection. I explained that any of these could necessitate further emergency surgery. The patient understands and all questions were answered sufficiently. The patient wishes to proceed with procedure. Fernando Ritchie MD Pager: [facility] [address] [place] [address], [address] [place] [address] Office: Surgery Risks - Colonoscopy Risks Include but are not Limited To: Risks include but are not limited to: Bleeding, perforation requiring further surgery, inability to complete colonoscopy requiring barium enema.
--- NOTE | 2024-08-31 12:38 | OP.CCLET_ITS ---
08/31/2024 Aric Prieto Re : Colonoscopy procedure for Simon Lim Dear Dr. Prieto This procedure was performed on Saturday, August 31, 2024. My impressions and recommendations are as follows: Impressions : - The entire examined colon is normal on direct and retroflexion views. - No specimens collected. Recommendations : - Discharge patient to home. - Resume previous diet. - Continue present medications. - Repeat colonoscopy in 5 years for screening purposes. My findings are described in the full procedure note, which is enclosed. If I can be of further assistance, please feel free to contact me at Doctor phone number(s): , Work: . Sincerely, Fernando Ritchie MD 08/31/2024 12:37:49 PM This report has been signed electronically.
--- NOTE | 2024-08-31 12:38 | OP.COLON_ITS ---
Patient Name: Simon Lim Procedure Date: 08/31/2024 12:05 PM Date of : 1965 Age: 58 Procedure: Colonoscopy Indications: Screening in patient at increased risk: Colorectal cancer in mother before age 60 Providers: Fernando Ritchie MD Referring MD: Aric Prieto Medicines: Propofol per Anesthesia Patient Profile: This is a 58 year old male. Refer to note in patient chart for documentation of history and physical. Last Colonoscopy: 5 years ago. Complications: No immediate complications. Procedure: Pre-Anesthesia Assessment: - Prior to the procedure, a History and Physical was performed, and patient medications and allergies were reviewed. The patient's tolerance of previous anesthesia was also reviewed. The risks and benefits of the procedure and the sedation options and risks were discussed with the patient. All questions were answered, and informed consent was obtained. Prior Anticoagulants: The patient has taken no anticoagulant or antiplatelet agents. After reviewing the risks and benefits, the patient was deemed in satisfactory condition to undergo the procedure. After I obtained informed consent, the scope was passed under direct vision. Throughout the procedure, the patient's blood pressure, pulse, and oxygen saturations were monitored continuously. The Colonoscope was introduced through the anus and advanced to the cecum, identified by appendiceal orifice and ileocecal valve. The colonoscopy was performed without difficulty. The patient tolerated the procedure well. The quality of the bowel preparation was good. The ileocecal valve, appendiceal orifice, and rectum were photographed. Scope In: 12:13:47 PM Scope Withdrawal Time 0 hours 16 minutes 24 seconds Scope Out: 12:35:36 PM Total Procedure Duration Time 0 hours 21 minutes 49 seconds Findings: The entire examined colon appeared normal on direct and retroflexion views. Impression: - The entire examined colon is normal on direct and retroflexion views. - No specimens collected. Recommendation: - Discharge patient to home. - Resume previous diet. - Continue present medications. - Repeat colonoscopy in 5 years for screening purposes. Procedure Code(s): --- Professional --- 28498, Colonoscopy, flexible; diagnostic, including collection of specimen(s) by brushing or washing, when performed (separate procedure) Diagnosis Code(s): --- Professional --- Z80.0, Family history of malignant neoplasm of digestive organs CPT copyright 2022 [employer]. All rights reserved. The codes documented in this report are preliminary and upon staging technician review may be revised to meet current compliance requirements. Fernando Ritchie MD 08/31/2024 12:37:49 PM This report has been signed electronically. Number of Addenda: 0 Note Initiated On: 08/31/2024 12:05 PM
--- NOTE | 2024-08-31 12:44 | PCM.POST.ANE ---
Anesthesia: Postop Eval I Current Vital Signs Temperature: 97.2 F Pulse Rate: 75 Blood Pressure: 96/74 Respiratory Rate: 16 Pulse Ox: 93 Oxygen Delivery Method: Room Air Assessment Airway patent: Yes Spontaneous unlabored respirations: Yes Mental status: Asleep nausea: No Vomiting: No Anesthesia Complication: No Fluid Hydration Crystalloid volume administer (ml): 700 Total IV fluid infused: 700 Progress Note Anesthesia document: Postop Eval 1 completed: Yes
--- NOTE | 2024-08-31 16:35 | PCM.POSTANE2 ---
Anesthesia Postop Eval I Sum Postop Eval Completion status Anesthesia document: Postop Eval 1 completed: Yes Anesthesia Postop Eval I Summary Anesthesia Postop Eval I Summary: Anesthesia Postop Eval I: Assessment Summary Airway patent Yes 08/31/24 12:45 [email or web address] Spontaneous unlabored Yes 08/31/24 12:45 [email or web address] respirations Mental status Asleep 08/31/24 12:45 [email or web address] nausea No 08/31/24 12:45 [email or web address] Vomiting No 08/31/24 12:45 [email or web address] Anesthesia Postop Eval I: Fluid Summary Crystalloid volume administer 700 08/31/24 12:45 [email or web address] (ml) Colloids volume administered ( ml) Blood Product volume administered (ml) Total IV fluid infused 700 08/31/24 12:45 [email or web address] Anesthesia Postop Eval I: Summary Notes Anesthesia Complication No 08/31/24 12:45 [email or web address] Anesthesia Complication Comment: Post-operative progress note Anesthesia: Postop Eval II Evaluation Mental status: Awake Pain Level: 0 nausea: No Vomiting: No
== END 2024-08-31 13:51 | disposition home or self-care (01) ==
LOC: EN 10:54 → AC 10:55
PROVIDERS: PCP Family Medicine; Referring Provider Family Medicine; Visit Provider Surgery
PROC: 0DJD8ZZ Inspection of Lower Intestinal Tract, Via Natural or Artificial Opening Endoscopic (ICD-10-PCS; CPT 45378; principal; 2024-08-31 11:55)
DX: Z12.11 Encounter for screening for malignant neoplasm of colon (principal); Z80.0 Family history of malignant neoplasm of digestive organs
CPT/HCPCS: 45378; J2405

== ENCOUNTER → 2024-10-12 | Outpatient (CLI) | payer OTHER, SELFPAY ==
--- NOTE | 2024-10-12 12:44 | RAD_ITS ---
PROCEDURE: CERV SPINE 2 OR 3 VIEWS 10/12/2024 REASON FOR EXAM: RIGHT ARM WEAKNESS TECHNIQUE: CERV SPINE 2 OR 3 VIEWS COMPARISON: None FINDINGS: Vertebrae: Unremarkable disc spaces: Multilevel disc space narrowing worse at the C5-C6 and C6-C7 levels. Alignment: Loss of the normal cervical lordosis. soft tissues: Unremarkable. Other: RAD/Cerv Spine 2 or 3 Views IMPRESSION: Straightening of the normal cervical lordosis. Multilevel disc space narrowing. Disclaimer: Reading Location: [place] [id number]
== END | disposition home or self-care (01) ==
LOC: MTRAD 12:39
PROVIDERS: PCP Family Medicine; Referring Provider Family Medicine; Visit Provider Family Medicine
DX: R29.898 Other symptoms and signs involving the musculoskeletal system (principal)
CPT/HCPCS: 72040

== ENCOUNTER → 2024-11-07 | Outpatient (CLI) | payer OTHER, SELFPAY ==
--- NOTE | 2024-11-07 12:36 | MRI_ITS ---
PROCEDURE: SPINE CERVICAL (ROUTINE) 11/07/2024 REASON FOR EXAM: NECK PAIN TECHNIQUE: SPINE CERVICAL (ROUTINE) Multiplanar and multisequence images were obtained without IV contrast administration. COMPARISON: None. FINDINGS: Vertebrae: Cervical vertebral body heights are preserved. Bone marrow signal is unremarkable. Alignment: Normal. No spondylolisthesis. Spinal Cord: Cervical spinal cord is of normal size and signal intensities. Structures at the foramen magnum are unremarkable. C2-3: A 2 mm disc osteophyte complex. No significant foraminal or canal stenosis. C3-4: Disc desiccation. Disc osteophyte complex. Uncovertebral hypertrophy. Severe left and moderate right foramina stenosis. Mild canal stenosis. C4-5: Disc desiccation. Right uncovertebral hypertrophy. Severe right foramina stenosis. Disc osteophyte complex. Mild canal stenosis. C5-6: Disc desiccation and partial fusion. Disc osteophyte complex. Uncovertebral hypertrophy. Moderate bilateral foramina stenosis. Mild canal stenosis. C6-7: Disc desiccation and mild fusion. Uncovertebral hypertrophy. Mild bilateral foramina stenosis. Mild canal stenosis. C7-T1: Disc bulge. No foraminal or canal stenosis. MRI/Spine Cervical (Routine) IMPRESSION: Degenerate changes, significant for severe right foramina stenosis at C4-C5 and severe left foramina stenosis at C3-C4. Moderate bilateral foramina stenosis at C5-C6. No significant canal stenosis. Reading Location: [id number]
--- OUTSIDE RECORDS SUMMARY | 2024-11-07 17:30 | XMS RPT_ITS | CCD ---
Author Organization [facility] Care Team Providers Care Cashier Or Checker Stock Clerk Name Role Phone RIDERANGEL LUIS Unavailable Unavailable ELVIN PRIETO Unavailable Unavailable Dr. Elvin Prieto Primary Care Provider [phone] Dr. Elvin Prieto Referring Provider [phone] HEMAL Velarde Attending Provider Unavailab Dr. Elvin Trevino Primary Care Provider [phone] [phone] Dr. Elvin Prieto Attending Provider 1(330) Dr. Elvin Prieto Referring Provider 1(330) Dr. Elvin Prieto DO Primary Care Provider Wendy Hernandez Attending Provider Unavailable Dr. Elvin Prieto DO Attending Provider [phone] [phone] Dr. Elvin Prieto DO Referring Provider [phone] Erma CONSTANTINO, Dr. King Attending Provider Erma CONSTANTINO, Dr. King Other Provider Dr. Elvin Prieto DO Primary Care Provider BrownElvin Referring Unavailable Brown, Elvin R Primary Care Unavailable BrownElvin R Attending Unavailable Conner, Elvin R Referring Unavailable Brown, Elvin R Primary Care Unavailable Brown, Elvin R Attending Unavailable Conner, Elvni R Primary Care Unavailable Wendy Hernandez Attending Unavailable Elvin Prieto Referring Unavailable Fernando Ritchie Consulting Unavailable Fernando Ritchie Attending Unavailable Brown, Elvin R Primary Care Unavailable Brown, Elvin R Primary Care Unavailable Brown, Elvin R Attending Unavailable Brown, Elvin R Referring Unavailable Brown, Elvin R Referring Unavailable Brown, Elvin R Primary Care Unavailable BrownElvin R Attending Unavailable Fernando Ritchie Attending Unavailable ConnerElvin R Referring Unavailable ConnerElvin R Primary Care Unavailable Juni Nelson Attending Unavailable Juni Nelson Referring Unavailable Elvin Prieto R Primary Care Unavailable Conner Elvin R Primary Care Unavailable Conner Elvin R Attending Unavailable ConnerElvin R Referring Unavailable Medications Current Medications Medication Drug Class(es) Dates Sig (Normalized) Sig (Original) [place] (Nk) (4 sources) Start: 06-14-2024 [place] (Nk) A ctive June 14, 2024 12:00am Completed/Discontinued Medications Medication Drug Class(es) Dates Sig (Normalized) Sig (Original) [id number] 200 actuat albuterol 0.09 mg/actuat metered dose inhaler (16 sources) beta2-Adrenergic Agonist Start: 04-22-2019 End: 06-14-2024 Albuterol Sulfate 1 INHALER inhaler Discontinued 1 - 2 NMA INHALATION EVERY 4 HOURS NEEDED as needed for Sob &/Or Wheezing April 22, 2019 1:00am June 14, 2024 11:48am Start: 04-22-2019 take 1 puff(s) by in halation every four hours as needed Albuterol Sulfate Active 1 - 2 PUFF INHALATION EVERY 4 HOURS NEEDED April 22, 2019 12:00am Start: 07-26-2017 End: 06-25-2018 Albuterol Sulfate (Proair Hf a) 90 mcg/actuation HFA aerosol inhaler Discontinued 2 NMA INHALATION Q4H as needed for shortness of breath July 26, 2017 12:00am June 25, 2018 8:46am Start: 07-26-2017 End: 06-25-2018 take 1 puff(s) by inhalation every four hours Albuterol Sulfate (Proair Hfa) 90 mcg/actuation HFA aerosol inhaler Discontinued 2 PUFF INHALATION Q4H July 25, 2017 11:00pm June 25, 2018 7:46am aspirin 81 mg delayed release oral tablet (8 sources) Platelet Aggregation Inhibitor, Nonsteroidal Anti-inflammatory Drug Start: 05-07-2019 End: 08-03-2022 Aspirin (Adult Low Dose Aspirin) 81 mg tablet,delayed release (DR/EC) Discontinued 81 mg PO DAILY May 07, 2019 1:00am August 03, 2022 9:35am azithromycin 250 mg oral tablet (8 sources) Macrolide Antimicrobial Start: 10-27-2018 End: 11-28-2018 take 2-5 tablets by mouth once daily Azithromycin 250 mg tablet Discontinued 0 PO .COMPLEX 6 0 October 27, 2018 12:00am November 28, 2018 9:30am take 500 mg today (day 1), then 250 mg for 4 days (days 2-5) PO cyclobenzaprine hydrochloride 5 mg oral tablet (8 sources) Muscle Relaxant Start: 01-01-2022 End: 06-14-2024 take 5-10 mg by mouth at bedtime as needed for muscle spasms Cyclobenzaprine 5 mg tablet Discontinued 5 - 10 mg PO AT BEDTIME as needed for muscle spasm January 01, 2022 12:00am June 14, 2024 11:50am Start: 01-01-2022 take 5-10 mg by mout h at bedtime Cyclobenzaprine Active 5 - 10 MG PO AT BEDTIME December 31, 2021 11:00pm fluticasone propionate 0.05 mg/actuat metered dose nasal spray (8 sources) Corticosteroid Start: 11-28-2018 End: 05-07-2019 Fluticasone Propionate (Flonase Allergy Relief) 50 mcg/actuation spray,suspension Discontinued 1 NMA INTRANASAL DAILY as needed for Allergies November 28, 2018 12:00am May 07, 2019 10:15am Start: 11-28-2018 End: 05-07-2019 Fluticasone Propionate (Flon ase Allergy Relief) 50 mcg/actuation spray,suspension Discontinued 1 SPRAY INTRANASAL DAILY November 27, 2018 11:00pm May 07, 2019 9:15am naproxen 500 mg oral tablet (8 sources) Nonsteroidal Anti-inflammatory Drug Start: 04-22-2019 End: 05-07-2019 take 1 tablet by mouth twice daily as needed Naproxen 500 MG tablet Discontinued 500 mg PO TWICE DAILY NEEDED April 22, 2019 1:00am May 07, 2019 10:15am ofloxacin 3 mg/ml ophthalmic solution (8 sources) Quinolone Antimicrobial Start: 06-25-2018 End: 10-27-2018 Ofloxacin 0.3 % drops Discontinued 0 OPHTHALMIC .COMPLEX 10 0 June 25, 2018 12:00am October 27, 2018 11:15am Other seasonal allergic rhinitis Viral conjunctivitis, unspecified put 1-2 drps into affected eye(s) every 2-4 h x 2 days, then 1-2 drps 4 times/day days 3-7 ophthalmic (eye) Start: 06-25-2018 End: 10-27-2018 Ofloxacin Discontinued 0 OPH THALMIC .COMPLEX June 24, 2018 11:00pm October 27, 2018 10:15am put 1-2 drps into affected eye(s) every 2-4 h x 2 days, then 1-2 drps 4 times/day days 3-7 ophthalmic (eye) sildenafil 100 mg oral tablet (20 sources) Phosphodiesterase 5 Inhibitor Start: 10-30-2018 End: 05-07-2019 Sildenafil (Viagra) 100 mg tablet Discontinued 100 mg PO DAILY as needed for sexual activity 7 November 03, 2018 9:40am May 07, 2019 10:15am administer 30 minutes to 4 hours before activity Start: 07-26-2017 End: 06-25-2018 take 1 tablet by mouth every four to six hours Sildenafil (Pulm.Hypertension) 20 mg tablet Discontinued 60 mg PO ONCE 30 July 26, 2017 12:00am June 25, 2018 8:46am administer doses at least 4-6 hours apart Start: 07-26-2017 End: 06-25-2018 Sildenafil (Pulm.Hypertensio n) Discontinued 60 MG PO ONCE July 25, 2017 11:00pm June 25, 2018 7:46am administer doses at least 4-6 hours apart Problems Active Problems Problem Classification Problem Date Documented Date Episodic/Chronic Abdominal hernia (5 sources) Right inguinal hernia ; Translations: [Unilateral inguinal hernia, without obstruction or gangrene, not specified as recurrent] 08-03-2022 Episodic Abdominal pain (5 sources) Right lower quadrant pain; Translations: [Right lower quadrant pain] 08-06-2022 Episodic Chronic obstructive pulmonary disease and bronchiectasis (8 sources) Bronchitis; Translations: [Bronchitis, not specified as acute or chronic] 10-27-2018 Episodic Genitourinary symptoms and ill-defined conditions (6 sources) Urinary incontinence; Translations: [Unspecified urinary incontinence] 04-20-2023 Chronic Hemorrhoids (8 sources) Hemorrhoids; Translations: [Unspecified hemorrhoids] 04-23-2019 Episodic Other and unspecified benign neoplasm (8 sources) Melanocytic nevus of skin ; Translations: [Melanocytic nevi, unspecified] 09-09-2021 Episodic Other connective tissue disease (4 sources) Muscle weakness of upper limb; Translations: [Other symptoms and signs involving the musculoskeletal system] 10-10-2024 Episodic Other connective tissue disease (1 source) Other symptoms and signs involving the musculoskeletal system; Translations: [Other symptoms and signs involving the musculoskeletal system] Onset: 10-18-2024 Episodic Other lower respiratory disease (8 sources) Dyspnea; Translations: [Shortness of breath] 07-26-2017 Episodic Other male genital disorders (9 sources) Male erectile dysfunction, unspecified; Translations: [Erectile dysfunction] 11-28-2018 Chronic Other non-traumatic joint disorders (5 sources) Hip pain; Translations: [Pain in right hip] 08-03-2022 Episodic Other screening for suspected conditions (not mental disorders or infectious disease) (9 sources) Patient encounter status; Translations: [Encounter for screening for malignant neoplasm of colon] Onset: 09-17-2024 06-14-2024 Episodic Other skin disorders (8 sources) Seborrheic keratosis; Translations: [Other seborrheic keratosis] 07-18-2024 Episodic Other upper respiratory disease (8 sources) Seasonal allergic rhinitis; Translations: [Other seasonal allergic rhinitis] 07-26-2017 Chronic Spondylosis; intervertebral disc disorders; other back problems (1 source) Other cervical disc degeneration, unspecified cervical region; Translations: [Other cervical disc degeneration, unspecified cervical region] Onset: 11-05-2024 Chronic Spondylosis; intervertebral disc disorders; other back problems (3 sources) Cervicalgia; Translations: [Cervicalgia] Episodic Past or Other Problems Problem Classification Problem Date Documented Da te Episodic/Chronic Other skin disorders (1 source) Other seborrheic keratosis; Translations: [Other seborrheic keratosis] Onset: 07-18-2024 Episodic Results Test Name Value Interpretation Reference Range Facility Cerv Spine 2 or 3 Viewson Cerv Spine 2 or 3 Views [facility] [address] [place] [place], [place] [id number] Cerv Spine 2 or 3 Views MR#: [id number] Acct: [id number] Name: SIMON GRANADO Rep #: [id number] : 1965 M 59 From: Sudhakar gilliland MD PCP: Dr. Elvin Prieto, Status: REG CLI Study: Cerv Spine 2 or 3 Views Date of Exam: 10/12/24 Exam# [id number] Ordering Dr: Elvin Prieto DO PROCEDURE: CERV SPINE 2 OR 3 VIEWS 10/12/2024 REASON FOR EXAM: RIGHT ARM WEAKNESS TECHNIQUE: CERV SPINE 2 OR 3 VIEWS COMPARISON: None FINDINGS: Vertebrae: Unremarkable disc spaces: Multilevel disc space narrowing worse at the C5-C6 and C6-C7 levels. Alignment: Loss of the normal cervical lordosis. soft tissues: Unremarkable. Other: RAD/Cerv Spine 2 or 3 Views IMPRESSION: Straightening of the normal cervical lordosis. Multilevel disc space narrowing. Disclaimer: Reading Location: [place] [address] CC: Dr. Elvin Prieto, Manager Market Intelligence: Signed Normal [facility] Internal Medicine Office Vis ito 10-10-2024 Internal Medicine Office Visit [facility] [address] [place] [address] [place] [address] OFFICE VISIT Date of Service: 10/10/24 MR#: [id number] Acct: [id number] Name: SIMON GRANADO Rep #: [id number] : 1965 Provider: Dr. Elvin morrell DO Age/Sex: 59/M Location: [facility] Status: Signed Intake Vital Signs 08/31/24 11:24 10/10/24 14:11 Height 6 ft 5 in 6 ft 5 in Weight: 230 lb 8 oz BMI 27.3 BP 126/74 H Blood Pressure Location Lt brachial Position Sitting Respiration 16 Pulse 67 Pulse Source Monitor Temp 97.8 F Temp Source Temporal Pulse Oximetry (%) 97 Oxygen Delivery Method room air Intake Visit Reasons: ARM NUMBNESS/PAIN - NON EMERGENT Chief Complaint: arm pain Commercial Technician Required: No Accompanied by: Self Is patient in pain?: No Allergies No Known Allergies Allergy (Verified 10/10/24 14:05) Medications ???Medication ???Instructions ???Recorded ???Confirmed ???Type NK 06/14/24 10/10/24 History Nurse's Note: right arm pain and numbness PFSH Medical History Wears glasses Non-smoker Family history of colon cancer in mother Right inguinal hernia Chronic right hip pain Hemorrhoid Hay fever SOB (shortness of breath) Seasonal allergies Surgical History History of oral surgery History of colonoscopy ( 2011) Family History Mother Breast cancer Colon cancer, Onset Age: 56 Father Heart disease Grandmother Diabetes Brother Colon polyps Social History adopted: No household members: spouse number of children: 1 current occupational status: employed 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 It appears not to be related to trauma. The pain is related to neck position. It is not related to exertion. The pain extends down his right arm on the posterior aspect of the arm and into the hand. ROS Const Constitutional: No body ache, excessive sweating, fatigue, fever(s), frequent falls, headache(s), snoring, weakness, weight change, sleep problems or change in appetite Eyes Eyes: No blurry vision, change in vision, eye pain or Light sensitivity ENT ENT: No abnormal hearing, ear or mastoid pain, tinnitus, nasal congestion, headache(s), neck pain or sore throat Resp Respiratory: No cough, shortness of breath, snoring or wheezing Cardio Cardiology: No chest pain at rest, chest pain with exertion, excessive sweating, shortness of breath, dyspnea on exertion, lightheadedness, orthopnea or palpitations Gastro GI: No abdominal pain, change in bowel habits, constipation, cramping, diarrhea, nausea/dyspepsia or vomiting Genitourinary Male: No burning urination, painful urination, urinary incontinence, urinary frequency or blood in urine Musc Musculoskeletal: No abnormal gait, joint pain, back pain, limited range of motion, neck pain, numbness, stiffness, tingling or Arthritis Skin Skin: No dry skin, redness, lesions, itchy eyes, rash or wounds Neuro Neurology: No abnormal gait, abnormal hearing, abnormal speech, dizziness, weakness, frequent falls, headache(s), memory loss, numbness or tingling Psych Psychiatric: No anxiety, No change in appetite, No depression, No memory loss and No Thoughts of harming yourself/Others Endo Endocrine: No cold intolerance, excessive sweating, fatigue, flushing, heat intolerance, increased thirst/drinking, increased hunger or weight change Aller/Imm Allergy/Immunologic: No itchy eyes, seasonal allergy symptoms, hives or wheezing Dwight/Lymp Hematologic/Lymphati c: No easy bleeding, easy bruising or enlarged lymph nodes Exam Const General: cooperative, healthy appearing and comfortable Neck Neck: normal visual inspection, full ROM and supple Neck mass: No Lymphatic: no lymphadenopathy noted Chest Chest palpation inspection: normal inspection of the chest Skin General: no rashes or lesions noted Neuro General: normal light touch, pain and propioception Motor: strength 5/5 throughout Sensory Exam: no sensory deficits noted Coordination: [id number] test normal Coding Level of Care Code Off vis,est,level 3 Diagnoses Right arm weakness R29.898 Asse (more content not included)... Normal [facility] Colonoscopy Reporton 025 Colonoscopy Report [facility] Medical Records Department [address] [place] [address] Colonoscopy Report MR#: [id number] Acct: [id number] Name: SIMON GRANADO Rep #: [id number] : 1965 58 From: Fernando Ritchie MD PCP: Dr. Elvin Prieto, DO Status:REG [facility] Patient Name: Simon Granado Procedure Date: 08/31/2024 12:05 PM Date of : 1965 Age: 58 Procedure: Colonoscopy Indications: Screening in patient at increased risk: Colorectal cancer in mother before age 60 Providers: Fernando Ritchie MD Referring MD: Elvin Prieto Medicines: Propofol per Anesthesia Patient Profile: This is a 58 year old male. Refer to note in patient chart for documentation of history and physical. Last Colonoscopy: 5 years ago. Complications: No immediate complications. Procedure: Pre-Anesthesia Assessment: - Prior to the procedure, a History and Physical was performed, and patient medications and allergies were reviewed. The patient's tolerance of previous anesthesia was also reviewed. The risks and benefits of the procedure and the sedation options and risks were discussed with the patient. All questions were answered, and informed consent was obtained. Prior Anticoagulants: The patient has taken no anticoagulant or antiplatelet agents. After reviewing the risks and benefits, the patient was deemed in satisfactory condition to undergo the procedure. After I obtained informed consent, the scope was passed under direct vision. Throughout the procedure, the patient's blood pressure, pulse, and oxygen saturations were monitored continuously. The Colonoscope was introduced through the anus and advanced to the cecum, identified by appendiceal orifice and ileocecal valve. The colonoscopy was performed without difficulty. The patient tolerated the procedure well. The quality of the bowel preparation was good. The ileocecal valve, appendiceal orifice, and rectum were photographed. Scope In: 12:13:47 PM Scope Withdrawal Time 0 hours 16 minutes 24 seconds Scope Out: 12:35:36 PM Total Procedure Duration Time 0 hours 21 minutes 49 seconds Findings: The entire examined colon appeared normal on direct and retroflexion views. Impression: - The entire examined colon is normal on direct and retroflexion views. - No specimens collected. Recommendation: - Discharge patient to home. - Resume previous diet. - Continue present medications. - Repeat colonoscopy in 5 years for screening purposes. Procedure Code(s): --- Professional --- 18099, Colonoscopy, flexible; diagnostic, including collection of specimen(s) by brushing or washing, when performed (separate procedure) Diagnosis Code(s): --- Professional --- Z80.0, Family history of malignant neoplasm of digestive organs CPT copyright 2021 [employer]. All rights reserved. The codes documented in this report are preliminary and upon office director review may be revised to meet current compliance requirements. Fernando Ritchie MD 08/31/2024 12:37:49 PM This report has been signed electronically. Number of Addenda: 0 Note Initiated On: 08/31/2024 12:05 PM 08/31/24 1238 Date Fernando Weinstein Signature: Date (if indicated) CC: Dr. Fernando Ritchie MD; Dr. Elvin Prieto, DO Date Dictated: 08/31/24 1205 Date Transcribed: Manager Market Intelligence: ANJEL Cespedes [facility] MR/POSTOP.[facility] 08-31-2024 MR/POSTOP.[facility] Medical Records Department [address] [place] [address] Anesthesia Postop Eval I 08/31/24 1244 MR#: [id number] Acct: [id number] Name: SIMON GRANADO Rep #: [id number] : 1965 58 From: Matthew Hernadez PCP: Dr. Elvin Prieto, DO Status:REG SD Y Race: C Location: [place] [address] Anesthesia: Postop Eval I Current Vital Signs Temperature: 97.2 F Pulse Rate: 75 Blood Pressure: 96/74 Respiratory Rate: 16 Pulse Ox: 93 Oxygen Delivery Method: Room Air Assessment Airway patent: Yes Spontaneous unlabored respirations: Yes Mental status: Asleep nausea: No Vomiting: No Anesthesia Complication: No Fluid Hydration Crystalloid volume administer (ml): 700 Total IV fluid infused: 700 Progress Note Anesthesia document: Postop Eval 1 completed: Yes 08/31/24 1245 Date Matthwe Weinstein Signature: CC: Signed Normal [facility] [id number] 08-31-2024 MR/POSTOPAN2 [facility] Medical Records Department [address] [place] [address] Anesthesia Postop Eval II 08/31/24 163 MR#: [id number] Acct: [id number] Name: SIMON GRANADO Rep #: [id number] : 1965 58 From: Anny Lloyd CRNA PCP: Dr. Elvin Prieto, DO Status:DEP [facility] [place] Race: C Location: EN Anesthesia Postop Eval I Sum Postop Eval Completion status Anesthesia document: Postop Eval 1 completed: Yes Anesthesia Postop Eval I Summary Anesthesia Postop Eval I Summary: Anesthesia Postop Eval I: Assessment Summary Airway patent Yes 08/31/24 12:45 [email or web address] Spontaneous unlabored Yes 08/31/24 12:45 [email or web address] respirations Mental status Asleep 08/31/24 12:45 [email or web address] nausea No 08/31/24 12:45 [email or web address] Vomiting No 08/31/24 12:45 [email or web address] Anesthesia Postop Eval I: Fluid Summary Crystalloid volume administer 700 08/31/24 12:45 [email or web address] (ml) Colloids volume administered ( ml) Blood Product volume administered (ml) Total IV fluid infused 700 08/31/24 12:45 [email or web address] Anesthesia Postop Eval I: Summary Notes Anesthesia Complication No 08/31/24 12:45 [email or web address] Anesthesia Complication Comment: Post-operative progress note Anesthesia: Postop Eval II Evaluation Mental status: Awake Pain Level: 0 nausea: No Vomiting: No 08/31/24 1635 Date Anny Weinstein Signature: Date CC: Signed [facility] Internal Medicine Office Vis ladan 07-18-2024 Internal Medicine Office Visit [facility] [address] [place] [address] [place] [address] OFFICE VISIT Date of Service: 07/18/24 MR#: [id number] Acct: [id number] Name: SIMON GRANADO Rep #: [id number] : 1965 Provider: Dr. Elvin morrell, DO Age/Sex: 58/M Location: [facility] Status: Signed Intake Vital Signs 04/20/23 14:02 07/17/24 14:00 07/18/24 14:08 Height 6 ft 5 in 6 ft 5 in 6 ft 5 in Weight: 237 lb 237 lb BMI 28.0 28.0 BP 114/62 132/82 H Blood Pressure Location Lt brachial Lt brachial Position Sitting Sitting Respiration 14 14 Pulse 73 70 Pulse Source Monitor Monitor Temp 97.3 F L 97.7 F L Temp Source Temporal Temporal Pulse Oximetry (%) 93 96 Oxygen Delivery Method room air room air Intake Visit Reasons: MOLE REMOVAL Commercial Technician Required: No Accompanied by: Is patient in pain?: No Allergies No Known Allergies Allergy (Verified 07/18/24 13:50) Medications ???Medication ???Instructions ???Recorded ???Confirmed ???Type NK 06/14/24 07/18/24 History Nurse's Note: Has 3 moles on L side of neck, and 1 on his R side waist, 1 by belly button, L lower skin spots x2 that have been there awhile. Possible wart on L pinky. The R spot on his waist is new. Nothing else has changed in shape, color, size. None itch, hurt, crust or seep. 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 3 on his neck 1 on his chest 2 on his left leg and 1 on his right hand. ROS Const Constitutional: No body ache, chills, excessive sweating, fatigue, fever(s), frequent falls, headache(s), snoring, weakness, sleep problems or change in appetite Eyes Eyes: No blurry vision, change in vision, eye pain or Light sensitivity ENT ENT: No abnormal hearing, ear or mastoid pain, tinnitus, nasal congestion, headache(s), neck pain or sore throat Resp Respiratory: No cough, shortness of breath, snoring or wheezing Cardio Cardiology: No chest pain at rest, chest pain with exertion, excessive sweating, shortness of breath, dyspnea on exertion, lightheadedness, orthopnea or palpitations Gastro GI: No abdominal pain, change in bowel habits, constipation, cramping, diarrhea, nausea/dyspepsia or vomiting Genitourinary Male: No burning urination, painful urination, urinary incontinence or urinary frequency Musc Musculoskeletal: No abnormal gait, joint pain, back pain, limited range of motion, neck pain or numbness Skin Skin: Positive for lesions; No dry skin, redness, itchy eyes, rash or wounds Neuro Neurology: No abnormal gait, abnormal hearing, weakness, frequent falls, headache(s), memory loss or numbness Psych Psychiatric: No anxiety, No change in appetite, No depression, No memory loss and No Thoughts of harming yourself/Others Endo Endocrine: No cold intolerance, excessive sweating, fatigue, flushing, heat intolerance, increased thirst/drinking or increased hunger Aller/Imm Allergy/Immunologic: No itchy eyes, seasonal allergy symptoms, hives or wheezing Dwight/Lymp Hematologic/Lymphati c: No easy bleeding, easy bruising, enlarged lymph nodes or other Exam Const General: cooperative and healthy appearing Skin Hair: other (Patient has multiple seborrheic keratosis that were treated with cryotherap) Office Procedures Liquid Nitrogen Cryotherapy Procedure performed by: Elvin Prieto Number of freeze-thaw cycles: 2 Duration of liquid nitrogen freeze-thaw cycles (sec): 8-10 Patient tolerated procedure: well Complications: No Coding Level of Care Code Attention Speech Teacher Diagnoses Seborrheic keratosis L82.1 Assessment and Plan As (more content not included)... Normal [facility] Anion gap in Serum or Plasma Ordered By: Elvin Prieto on 07-17-2024 Anion gap [Moles/Vol] 11 mmol/L 08-16 [facility] BUN/creatinine ratioOrdered By: Elvin Prieto on 07-17-2024 Urea nitrogen/Creatinine [Mass ratio] 14.5 mg/mg 01-21 [facility] Bilirubin, totalOrdered By: Elvin Prieto on 07-17-2024 Bilirubin [Mass/Vol] 0.55 mg/dL 0.00-1.30 [facility] Carbon dioxide, total [Moles /volume] in Central venous bloodOrdered By: Elvin Prieto on 07-17-2024 CO2 [Moles/Vol] 22.1 mmol/L 21.0-32.0 [facility] Chloride assayOrdered By: Do doris Prieto on 07-17-2024 Chloride [Moles/Vol] 104 mmol/L 98-108 [facility] Comprehensive Metabolic Prof ilon 07-17-2024 Albumin [Mass/Vol] 4.1 g/dL Normal 3.4-4.8 [facility] Comment on above: Performed By: #### L [id number] #### [facility] [address] [place], [place], [id number] Albumin/Globulin [Mass ratio] 1.6 {ratio} Normal 0.9-2.4 [facility] Comment on above: Performed By: #### L [id number] #### [facility] [address] [place], [address] ALK PHOS 62 U/L Normal 40-129 [facility] Comment on above: Performed By: #### L [id number] #### [facility] [address] [place], [address] ALT [Catalytic activity/Vol] 12 U/L Normal <=46 [facility] Comment on above: Performed By: #### L [id number] #### [facility] [address] [place], [address] AST [Catalytic activity/Vol] 19 U/L Normal <=37 [facility] Comment on above: Performed By: #### L [id number] #### [facility] [address] [place], [address] Bilirubin [Mass/Vol] 0.55 mg/dL Normal 0.00-1.30 [facility] Comment on above: Performed By: #### L [id number] #### [facility] [address] [place], [address] BUN/CRE 14.5 RATIO Normal 10-20 [facility] Comment on above: Performed By: #### L [id number] #### [facility] [address] [place], [address] Calcium [Mass/Vol] 9.2 mg/dL Normal 7.6-11.0 [facility] Comment on above: Performed By: #### L [id number] #### [facility] [address] [place], [address] Chloride [Moles/Vol] 104 mmol/L Normal 98-108 [facility] Comment on above: Performed By: #### L [id number] #### [facility] [address] [place], [address] CO2 [Moles/Vol] 22.1 mmol/L Normal 21.0-32.0 [facility] Comment on above: Performed By: #### L [id number] #### [facility] [address] [place], [address] Creatinine [Mass/Vol] 1.28 mg/dL High 0.70-1.20 [facility] Comment on above: Performed By: #### L [id number] #### [facility] [address] [place], [address] GAP 11 Normal 5-15 [facility] Comment on above: Performed By: #### L [id number] #### [facility] [address] [place], [address] GFR/1.73 sq M.predicted among non-blacks MDRD (S/P/Bld) [Vol rate/Area] 64 mL/min/{1.73_m2} Normal >60 [facility] Comment on above: Result Comment: mL/m in/1.73m2 CKD-EPI Creatinine Equation (2020) Performed By: #### L [id number] #### [facility] [address] [place], [address] Globulin (S) [Mass/Vol] 2.5 g/dL Normal 2.2-4.2 [facility] Comment on above: Performed By: #### L [id number] #### [facility] [address] [place], [address] Glucose [Mass/Vol] 124 mg/dL High 70-99 [facility] Comment on above: Performed By: #### L [id number] #### [facility] [address] [place], [address] Potassium [Moles/Vol] 4.3 mmol/L Normal 3.3-5.1 [facility] Comment on above: Performed By: #### L [id number] #### [facility] [address] [place], [address] Sodium [Moles/Vol] 137 mmol/L Normal 133-145 [facility] Comment on above: Performed By: #### L [id number] #### [facility] [address] [place], [address] T PROT 6.6 g/dL Normal 5.9-8.4 [facility] Comment on above: Performed By: #### L [id number] #### [facility] [address] [place], [address] Urea nitrogen [Mass/Vol] 19 mg/dL Normal 4-19 [facility] Comment on above: Performed By: #### L [id number] #### [facility] [address] [place], [place], [id number] GFR/1.73 sq M.predicted reji g non-blacks MDRD (S/P/Bld) [Vol rate/Area]Ordered By: Elvin Prieto on 07-17-2024 Estimated GFR (MDRD) Non-Af Amer 64 >60 [facility] Comment on above: mL/min/1.73m2 CKD-EP I Creatinine Equation (2020) Glomerular filtration rate ( GFR) estimation/1.73 sq m using serum, plasma, or whole bOrdered By: Elvin Prieto on 07-17-2024 GFR/1.73 sq M.predicted among non-blacks MDRD (S/P/Bld) [Vol rate/Area] 64 mL/min/{1.73_m2} >60 [facility] Comment on above: mL/min/1.73m2 CKD-EP I Creatinine Equation (2020) Internal Medicine Office Vis itobrianne 07-17-2024 Internal Medicine Office Visit [facility] [address] [place], [place] [address] OFFICE VISIT Date of Service: 07/17/24 MR#: [id number] Acct: [id number] Name: SIMON GRANADO Rep #: [id number] : 1965 Provider: Dr. 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 Ritchie. 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/ [place] pets and animals: No sexually active: Yes Smoking Status: Never smoker alcohol intake: current alcohol intake frequency: a few times a week Alcohol type: beer substance use type: does not use caffeine: Yes (2) Type: coffee what type of physical activity do you participate in: yoga frequency: 3-4 times per week do you feel safe at home: Yes HPI HPI Details: SIMON GRANADO, is a 58 M who presents to the office today for ROS Const Constitutional: No body ache, chills, excessive sweating, fatigue, fever(s), frequent falls, headache(s), snoring, weakness, sleep problems or change in appetite Eyes Eyes: No blurry vision, change in vision, eye pain or Light sensitivity ENT ENT: No abnormal hearing, ear or mastoid pain, tinnitus, nasal congestion, headache(s), neck pain or sore throat Resp Respiratory: No cough, shortness of breath, snoring or wheezing Cardio Cardiology: No chest pain at rest, chest pain with exertion, excessive sweating, shortness of breath, dyspnea on exertion, lightheadedness, orthopnea or palpitations Gastro GI: No abdominal pain, change in bowel habits, constipation, cramping, diarrhea, nausea/dyspepsia or vomiting Genitourinary Male: No burning urination, painful urination, urinary incontinence or urinary frequency Musc Musculoskeletal: No abnormal gait, joint pain, back pain, limited range of motion, neck pain or numbness Skin Skin: No dry skin, redness, lesions, itchy eyes, rash or wounds Neuro Neurology: No abnormal gait, abnormal hearing, weakness, frequent falls, headache(s), memory loss or numbness Psych Psychiatric: No anxiety, No change in appetite, No depression, No memory loss and No Thoughts of harming yourself/Others Endo Endocrine: No cold intolerance, excessive sweating, fatigue, flushing, heat intolerance, increased thirst/drinking or increased hunger Aller/Imm Allergy/Immunologic: No itchy eyes, seasonal allergy symptoms, hives or wheezing Dwight/Lymp Hematologic/Lymphati c: No easy bleeding, easy bruising, enlarged lymph nodes or other Exam Const General: cooperative, comfortable and no acute distress Nutritional Appearance: average body habitus and well nourished Orientation: alert and oriented x3 Limitations: mental status not altered [facility] Head: normal to inspection Ears: hearing grossly normal bilaterally Nose: external nose normal Eyes General: appearance normal, both eyes and all related structures Chest Chest palpation inspection: normal inspection of the chest Resp Effort Inspection: normal respiratory effort, able to speak in complete sentences, symmetric chest movement, normal respiratory pattern, no audible wheezes and no cough Auscultation: Bilateral: Clear to Auscultation Cardio Palpation: normal PMI Rate: regular rate Heart Sounds: S1 normal, S2 normal, normal S1 and S2, no click, no gallops, no murmurs and no rubs GI Inspection: normal to inspection Auscultation: normal bowel sounds, no hyperacti (more content not included)... Normal [facility] - Chemistry and C hemistry - challengeOrdered By: Elvin Prieto on 07-17-2024 AST [Catalytic activity/Vol] 19 U/L <38 [facility] Potassium (Unsp spec) [Mass/ Vol]Ordered By: Elvin Prieto on 07-17-2024 Potassium [Moles/Vol] 4.3 mmol/L 3.3-5.1 [facility] Potassium measurement (mass/ volume)Ordered By: Elvin Prieto on 07-17-2024 Potassium (Unsp spec) [Mass/Vol] 4.3 mmol/L 3.3-5.1 [facility] Serum creatinine measurement (mass/volume)Ordered By: Elvin Prieto on 07-17-2024 Creatinine [Mass/Vol] 1.28 mg/dL High 0.70-1.20 [facility] Serum globulin measurementOr dered By: Elvin Prieto 07-17-2024 Globulin (S) [Mass/Vol] 2.5 g/dL 2.2-4.2 [facility] Serum glucose measurement (m ass/volume)Ordered By: Elvin Prieto 07-17-2024 Glucose [Mass/Vol] 124 mg/dL High 70-99 [facility] Serum or plasma alanine moeller otransferase (ALT) measurementOrdered By: Elvin Prieto 07-17-2024 ALT [Catalytic activity/Vol] 12 U/L <47 [facility] Serum or plasma albumin humble urement (mass/volume)Ordered By: Elvin Prieto 07-17-2024 Albumin [Mass/Vol] 4.1 g/dL 3.4-4.8 [facility] Serum or plasma albumin/glob ulin mass ratioOrdered By: Elvin Prieto 07-17-2024 Albumin/Globulin [Mass ratio] 1.6 {ratio} 0.9-2.4 [facility] Serum or plasma alkaline allyssa sphatase measurementOrdered By: Elvin Prieto 07-17-2024 ALP [Catalytic activity/Vol] 62 U/L 40-129 [facility] Serum or plasma calcium humble urement (mass/volume)Ordered By: Elvin Prieto 07-17-2024 Calcium [Mass/Vol] 9.2 mg/dL 7.6-11.0 [facility] Serum or plasma urea nitroge n measurement (mass/volume)Ordered By: Elvin Prieto on 07-17-2024 Urea nitrogen [Mass/Vol] 19 mg/dL 4-19 [facility] Sodium levelOrdered By: Vlad Prieto on 07-17-2024 Sodium [Moles/Vol] 137 mmol/L 133-145 [facility] Total proteinOrdered By: Jj Prieto on 07-17-2024 Protein [Mass/Vol] 6.6 g/dL 5.9-8.4 [facility] Basophil percentageOrdered B y: Elvin Prieto on 04-20-2023 Basophil percentage 0.60 ng/mL 0.0-4.0 [facility] Comment on above: This test was perfor med using the TPSA assay method for the[employer] chemistry system. Values obtained with differentassay methods cannot be used interchangably.When changing PSA assays in the course of monitoring apatient, additional sequential testing should be carriedout to confirm baseline values. Bilirubin [Mass/Vol] 0.70 mg/dL 0.20-1.00 [facility] Comment on above: For patients on eltr ombopag therapy, use of [place] TBIL is not recommended. Chloride [Moles/Vol] 107 mmol/L 98-107 [facility] Glucose [Mass/Vol] 100 mg/dL 74-106 [facility] Comment on above: Fasting Glucose resu lt from 100 to 125 mg/dL suggests IMPAIRED HOMEOSTASIS per A.D.A. criteria. Potassium [Moles/Vol] 4.0 mmol/L 3.5-5.1 [facility] Protein [Mass/Vol] 7.2 g/dL 6.4-8.2 [facility] Sodium [Moles/Vol] 138 mmol/L 136-145 [facility] - Chemistry and C hemistry - challengeOrdered By: Elvin Conner on 04-20-2023 Albumin/Globulin [Mass ratio] 1.2 {ratio} 0.9-2.4 [facility] ALP [Catalytic activity/Vol] 68 U/L 45-117 [facility] ALT [Catalytic activity/Vol] 20 U/L 16-61 [facility] CO2 [Moles/Vol] 25.0 mmol/L 21.0-32.0 [facility] Globulin (S) [Mass/Vol] 3.2 g/dL 2.2-4.2 [facility] Urea nitrogen/Creatinine [Mass ratio] 10.9 mg/mg 10-20 [facility] No Panel InformationOrdered By: Elvin Prieto on 04-20-2023 Estimated GFR (MDRD) Amer 74 mL/min >60 [facility] Comment on above: GFR Calc Estimated GFR (MDRD) Non-Af Amer 61 mL/min >60 [facility] Comment on above: Non- GFR Calc Serum or plasma calcium humble urement (mass/volume)Ordered By: Elvin Prieto on 04-20-2023 Calcium [Mass/Vol] 9.1 mg/dL 8.5-10.1 [facility] Serum or plasma creatinine m easurement (mass/volume)Ordered By: Elvin Prieto on 04-20-2023 Creatinine [Mass/Vol] 1.28 mg/dL 0.70-1.30 [facility] Comment on above: The validity of the calculated GFR & GFRAA in patients over 70 years has not been determined. Clinical correlation is essential. Serum or plasma urea nitroge n measurement (mass/volume)Ordered By: Elvin Prieto on 04-20-2023 Urea nitrogen [Mass/Vol] 14 mg/dL 7-18 [facility] Thin prep Papanicolaou smear with manual screeningOrdered By: Elvin Prieto on 04-20-2023 Thin prep Papanicolaou smear with manual screening 4.0 g/dL 3.2-5.0 [facility] Thin prep Papanicolaou smear with manual screening 16 U/L 15-37 [facility] Thin prep Papanicolaou smear with manual screening 6 5-15 [facility] ED Note-Provideron 8 ED Note-Provider Normal [facility] ([place]) Pat Eduon 07-09-2017 [facility] ([place]) Patient Summary Documentson 07-09-2017 Patient Summary Documents Normal [facility] ([place]) XR FOOT MINIMUM 3 VIEWS LEFT on 07-09-2017 XR FOOT MINIMUM 3 VIEWS LEFT ORIGINALXR FOOT MINIMUM 3 VIEWS LEFT CLINICAL STATEMENT: TTP 5th digit. COMPARISON: None FINDINGS: There is an oblique fracture through the proximal phalanx of the 5th digit without definite extension to the joint space. There is mild lateral angulation of the distal fracture fragment. No additional fracture shown. No dislocation. No radiopaque foreign body. Small enthesophyte at the insertion of the Achilles tendon identified. No radiopaque foreign body. IMPRESSION: Oblique fracture through the proximal phalanx of the 5th digit. Interpreted By: Malena SandersPreliminary Report By: Malena SandersElectronically Signed By: Malena Sanders Dictated Date: 07/09/2017 9:08:48 AM Prelim Date: 07/09/2017 9:08:48 AM Sign Date: 07/09/2017 9:10:43 AM Normal [facility] ([place]) Vital Signs Date Time Vital Sign Value Performing Clinician Faci lity 10-10-2024 14:11-0400 Body height 195.[address] Elvin Prieto DO Work Phone: [facility] 10-10-2024 14:11-0400 Body mass index (BMI) [Ratio] 27.3 kg/m2 Dr. Elvin Prieto DO Work Phone: [facility] 10-10-2024 14:11-0400 Body temperature 97.8 [degF] Dr. Elvin Prieto DO Work Phone: [facility] 10-10-2024 14:11-0400 Body weight 104.[address] Elvin Prieto DO Work Phone: [facility] 10-10-2024 14:11-0400 Diastolic blood pressure 74 mm[Hg] Dr. Elvin Prieto DO Work Phone: [facility] 10-10-2024 14:11-0400 Heart rate 67 /min Dr. Elvin Prieto DO Work Phone: [facility] 10-10-2024 14:11-0400 Respiratory rate 16 /min Dr. Elvin Prieto DO Work Phone: [facility] 10-10-2024 14:11-0400 SaO2% (BldA) [Mass fraction] 97 % Dr. Elvin Prieto DO Work Phone: [facility] 10-10-2024 14:11-0400 Systolic blood pressure 126 mm[Hg] Dr. Elvin Prieto DO Work Phone: [facility] 08-31-2024 13:00-0400 Body temperature 97.3 [degF] Dr. Elvin Prieto DO Work Phone: [facility] 08-31-2024 13:00-0400 Diastolic blood pressure 70 mm[Hg] Dr. Elvin Prieto DO Work Phone: [facility] 08-31-2024 13:00-0400 Heart rate 54 /min Dr. Elvin Prieto DO Work Phone: [facility] 08-31-2024 13:00-0400 Respiratory rate 16 /min Dr. Elvin Prieto DO Work Phone: [facility] 08-31-2024 13:00-0400 SaO2% (BldA) [Mass fraction] 93 % Dr. Elvin Prieto DO Work Phone: [facility] 08-31-2024 13:00-0400 Systolic blood pressure 100 mm[Hg] Dr. Elvin Prieto DO Work Phone: [facility] 08-31-2024 11:24-0400 Body height 195.[address] Elvin Prieto DO Work Phone: [facility] 08-31-2024 11:24-0400 Body mass index (BMI) [Ratio] 27.1 kg/m2 Dr. Elvin Prieto DO Work Phone: [facility] 08-31-2024 11:24-0400 Body weight [address] Elvin Prieto DO Work Phone: [facility] 07-18-2024 14:08-0400 Body height 195.[address] Elvin Prieto DO Work Phone: [facility] 07-18-2024 14:08-0400 Body mass index (BMI) [Ratio] 28 kg/m2 Dr. Elvin Prieto DO Work Phone: [facility] 07-18-2024 14:08-0400 Body temperature 97.7 [degF] Dr. Elvin Prieto DO Work Phone: [facility] 07-18-2024 14:08-0400 Body weight 107.[address] Elvin Prieto DO Work Phone: [facility] 07-18-2024 14:08-0400 Diastolic blood pressure 82 mm[Hg] Dr. Elvin Prieto DO Work Phone: [facility] 07-18-2024 14:08-0400 Heart rate 70 /min Dr. Elvin Prieto DO Work Phone: [facility] 07-18-2024 14:08-0400 Respiratory rate 14 /min Dr. Elvin Prieto DO Work Phone: [facility] 07-18-2024 14:08-0400 SaO2% (BldA) [Mass fraction] 96 % Dr. Elvin Prieto DO Work Phone: [facility] 07-18-2024 14:08-0400 Systolic blood pressure 132 mm[Hg] Dr. Elvin Prieto DO Work Phone: [facility] 07-17-2024 14:00-0400 Body mass index (BMI) [Ratio] 28 kg/m2 Dr. Elvin Prieto DO Work Phone: [facility] 07-17-2024 14:00-0400 Body temperature 97.3 [degF] Dr. Elvin Prieto DO Work Phone: [facility] 07-17-2024 14:00-0400 Body weight 107.[address] Elvin Prieto DO Work Phone: [facility] 07-17-2024 14:00-0400 Diastolic blood pressure 62 mm[Hg] Dr. Elvin Prieto DO Work Phone: [facility] 07-17-2024 14:00-0400 Heart rate 73 /min Dr. Elvin Prieto DO Work Phone: [facility] 07-17-2024 14:00-0400 Respiratory rate 14 /min Dr. Elvin Prieto DO Work Phone: [facility] 07-17-2024 14:00-0400 SaO2% (BldA) [Mass fraction] 93 % Dr. Elvin Prieto DO Work Phone: [facility] 07-17-2024 14:00-0400 Systolic blood pressure 114 mm[Hg] Dr. Elvin Prieto DO Work Phone: [facility] 06-14-2024 11:53-0400 Body mass index (BMI) [Ratio] 27.2 kg/m2 Dr. Elvin Prieto DO Work Phone: [facility] 06-14-2024 11:53-0400 Body weight 104.[address] Elvin Prieto DO Work Phone: [facility] 04-20-2023 14:02-0500 Body height 195.[address] Elvin Prieto Work Phone: [facility] 04-20-2023 14:02-0500 Body mass index (BMI) [Ratio] 27.5 kg/m2 Dr. Elvin Prieto Work Phone: [facility] 04-20-2023 14:02-0500 Body temperature 96.9 [degF] Dr. Elvin Prieto Work Phone: [facility] 04-20-2023 14:02-0500 Body weight 105.[address] Elvin Prieto Work Phone: [facility] 04-20-2023 14:02-0500 Diastolic blood pressure 82 mm[Hg] Dr. Elvin Prieto Work Phone: [facility] 04-20-2023 14:02-0500 Heart rate 58 /min Dr. Elvin Prieto Work Phone: [facility] 04-20-2023 14:02-0500 SaO2% (BldA) [Mass fraction] 97 % Dr. Elvin Prieto Work Phone: [facility] 04-20-2023 14:02-0500 Systolic blood pressure 128 mm[Hg] Dr. Elvin Prieto Work Phone: [facility] 01-01-2022 09:25-0400 Body height 195.[address] Elvin Prieto Work Phone: [facility] Work Phone: 01-01-2022 09:25-0400 Body mass index (BMI) [Ratio] 27.2 kg/m2 Dr. Elvin Prieto Work Phone: [facility] Work Phone: 01-01-2022 09:25-0400 Body temperature 97.2 [degF] Dr. Elvin Prieto Work Phone: [facility] Work Phone: 01-01-2022 09:25-0400 Body weight 104.[address] Elvin Prieto Work Phone: [facility] Work Phone: 01-01-2022 09:25-0400 Diastolic blood pressure 70 mm[Hg] Dr. Elvin Prieto Work Phone: [facility] Work Phone: 01-01-2022 09:25-0400 Heart rate 66 /min Dr. Elvin Prieto Work Phone: [facility] Work Phone: 01-01-2022 09:25-0400 Respiratory rate 16 /min Dr. Elvin Prieto Work Phone: [facility] Work Phone: 01-01-2022 09:25-0400 SaO2% (BldA) [Mass fraction] 98 % Dr. Elvin Prieto Work Phone: [facility] Work Phone: 01-01-2022 09:25-0400 Systolic blood pressure 100 mm[Hg] Dr. Elvin Prieto Work Phone: [facility] Work Phone: Encounters Encounter Date Encounter Type Care Provider Facility Start: 11-07-2024 ambulatory Juni RECIO Facilit y:[facility] Start: 10-12-2024 End: 10-12-[address] Elvin Prieto DO Work Phone: [facility] Start: 10-12-2024 End: 10-12-[address] Elvin Trevizo DO -[facility] Work Phone: Start: 10-12-2024 End: 10-12-2024 ambulatory Elvin Prieto Facility:[facility] Start: 10-10-2024 End: 10-10-[address] Elvin Trevizo DO -[facility] Work Phone: Start: 10-10-2024 End: 10-10-[address] Elvin Prieto DO Work Phone: -[facility] Start: 08-31-2024 ambulatory Elvin Prieto Facilit y:[facility] Start: 08-31-2024 Non-patient / Non-visit Dr. Dorita Ritchie MD -[facility] Start: 08-31-2024 End: 08-31-2024 Admission to same day surgery center Dr. Fernando Ritchie MD -Endoscopy Work Phone: Start: 08-31-2024 End: 08-31-[address] Elvin Prieto DO Work Phone: [facility] Work Phone: Start: 07-19-2024 Encounter for genera l adult medical examination without abnormal findings Elvin Prieto [facility] Start: 07-18-2024 End: 07-18-[address] Elvin Trevizo DO -[facility] Work Phone: Start: 07-18-2024 End: 07-18-2024 ambulatory Elvin Prieto Facility:[facility] Start: 07-17-2024 End: 07-17-[address] Elvin Trevizo DO -[facility] Work Phone: Start: 07-17-2024 End: 07-17-[address] Elvin Prieto DO Work Phone: [facility] Work Phone: Start: 07-17-2024 End: 07-17-2024 ambulatory Elvin Prieto Facility:[facility] Start: 06-14-2024 Non-patient / Non-visit Dr. Tomas DO Work Phone: -[facility] Work Phone: Start: 06-14-2024 ambulatory Elvin Prieto Facilit y:[facility] Start: 04-20-2023 End: 04-20-[address] Elvin Prieto Work Phone: [facility] Work Phone: Start: 04-20-2023 End: 04-20-[address] Elvin Prieto Work Phone: [facility] Work Phone: Start: 02-05-2022 End: 02-05-[address] Elvin Prieto Work Phone: [facility] Work Phone: Start: 02-05-2022 End: 02-05-[address] Elvin Prieto Work Phone: [facility] Start: 02-05-[address] Kailey Prieto Work Phone: [facility] Start: 01-01-2022 End: 01-01-[address] Elvin Prieto Work Phone: [facility] Start: 07-09-2017 End: 07-09-2017 Emergency department patient visit ANGEL LUIS MONIQUE Facility:[facility] Procedures Date Procedure Procedure Detail Performing Clinician Start: 10-12-2024 X-ray of cervical spine Dr. Elvin Prieto DO Work Phone: Start: 08-31-[address] Biju Prieto DO Work Phone: Plan of Treatment Date Care Activity Detail Author Start: 08-31-2024 Colonoscopy flx dx w/collj spec when pfrmd DIAGNOSTIC COLONOSCOPY [facility] Start: 08-31-2024 Patient discharge [facility] Start: 01-01-2022 Patient referral [facility] Work Phone: Colonoscopy [facility] Patient referral [facility] Work Phone: XR Cervical spine 2 or 3 Views [facility] Payers Date Payer Category Payer Private Health Insurance [id number] 2024 Self-pay [id number] 2024 Private Health Insurance [id number] 2017 Private Health Insurance [id number] Unknown [facility] PACKAGE PLAN [id number] Unknown [id number] Unknown [id number] Unknown [id number] Unknown [id number] Unknown [id number] Unknown [id number] Unknown [id number] Unknown [id number] Unknown [id number] Social History Date Type Detail Facility Start: 01-01-2022 End: 04-20-2023 Tobacco smoking status NHIS Unknown if ever smoked [facility] Start: 05-23-2019 Non-smoker [facility] Start: 1965 Sex Assigned At Male [facility] Start: 07-17-2024 End: 08-31-2024 Tobacco smoking status NHIS Never smoked tobacco (finding) [facility] Start: 07-19-2024 Sex Male (finding) [facility] Gender Identity Identifies as ma le gender (finding) [facility] Sexual Orientation Heterosexual (finding) [facility] Goals Date Patient Goal Desired Activity /State Mental Status Date Assessment Result Facility 08-31-2024 Cognitive function Light Pain [facility] Work Phone: 08-31-2024 Cognitive function Patient Orien tation Person;Place;Time [facility] Work Phone: Clinical Notes 07-17-2024 to 10-12-2024 Note Date & Type Note Facility 10-12-2024 Radiology Diagnostic study note [facility] Imaging Services [address] [place] [address] Cerv Spine 2 or 3 Views MR#: [id number] Acct: [id number] Name: SIMON GRANADO Rep #: [id number] : 1965 M 59 From: Elder Cevallos MD PCP: Dr. Elvin Prieto DO Status: RE G CLI Study:Cerv Spine 2 or 3 Views Date of Exam: 10/12/24 Exam# [id number] Ordering Dr: Do doris Prieto DO PROCEDURE: CERV SPINE 2 OR 3 VIEWS 10/12/2024 REASON FOR EXAM: RIGHT ARM WEAKNESS TECHNIQUE: CERV SPINE 2 OR 3 VIEWS COMPARISON: None FINDINGS: Vertebrae: Unremarkable disc spaces: Multilevel disc space narrowing worse at the C5-C6 and C6-C7 levels. Alignment: Loss of the normal cervical lordosis. soft tissues: Unremarkable. Other: RAD/Cerv Spine 2 or 3 Views IMPRESSION: Straightening of the normal cervical lordosis. Multilevel disc space narrowing. Disclaimer: Reading Location: [facility] CC: Dr. Elvin Prieto, DO ~ Manager Market Intelligence: Signed [facility] 10-10-2024 Progress note [facility] 10-10-2024 Progress note Note Date/Time October 10, 2024 2:35pm [facility] [address] [place] [address] OFFICE VISIT Date of Service: 10/10/24 MR#: [id number] Acct: [id number] Name: SIMON GRANADO Rep #: [id number] : 1965 Provider: Dr. Vlad Prieto DO Age/Sex: 59/M Location: [facility] Status: Signed Intake Vital Signs 08/31/24 11:24 10/10/24 14:11 Height 6 ft 5 in 6 ft 5 in Weight: 230 lb 8 oz BMI 27.3 BP 126/74 H Blood Pressure Location Lt brachial Position Sitting Respiration 16 Pulse 67 Pulse Source Monitor Temp 97.8 F Temp Source Temporal Pulse Oximetry (%) 97 Oxygen Delivery Method room air Intake Visit Reasons: ARM NUMBNESS/PAIN - NON EMERGENT Chief Complaint: arm pain Commercial Technician Required: No Accompanied by: Self Is patient in pain?: No Allergies No Known Allergies Allergy (Verified 10/10/24 14:05) Medications ?Medication ?Instructions ?Recorded ?Confirmed ?Type NK 06/14/24 10/10/24 History Nurse's Note: right arm pain and numbness PFSH Medical History Wears glasses Non-smoker Family history of colon cancer in mother Right inguinal hernia Chronic right hip pain Hemorrhoid Hay fever SOB (shortness of breath) Seasonal allergies Surgical History History of oral surgery History of colonoscopy (~2011) Family History Mother Breast cancer Colon cancer, Onset Age: 56 Father Heart disease Grandmother Diabetes Brother Colon polyps Social History adopted: No household members: spouse number of children: 1 current occupational status: employed 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 It appears not to be related to trauma. The pain is related to neck position. It is not related to exertion. The pain extends down his right arm on the posterior aspect of the arm and into the hand. ROS Const Constitutional: No body ache, excessive sweating, fatigue, fever(s), frequent falls, headache(s), snoring, weakness, weight change, sleep problems or change in appetite Eyes Eyes: No blurry vision, change in vision, eye pain or Light sensitivity ENT ENT: No abnormal hearing, ear or mastoid pain, tinnitus, nasal congestion, headache(s), neck pain or sore throat Resp Respiratory: No cough, shortness of breath, snoring or wheezing Cardio Cardiology: No chest pain at rest, chest pain with exertion, excessive sweating,shortness of breath, dyspnea on exertion, lightheadedness, orthopnea or palpitations Gastro GI: No abdominal pain, change in bowel habits, constipation, cramping, diarrhea,nausea/dyspepsia or vomiting Genitourinary Male: No burning urination, painful urination, urinary incontinence, urinary frequency or blood in urine Musc Musculoskeletal: No abnormal gait, joint pain, back pain, limited range of motion, neck pain, numbness, stiffness, tingling or Arthritis Skin Skin: No dry skin, redness, lesions, itchy eyes, rash or wounds Neuro Neurology: No abnormal gait, abnormal hearing, abnormal speech, dizziness, weakness, frequent falls, headache(s), memory loss, numbness or tingling Psych Psychiatric: No anxiety, No change in appetite, No depression, No memory loss and No Thoughts of harming yourself/Others Endo Endocrine: No cold intolerance, excessive sweating, fatigue, flushing, heat intolerance, increased thirst/drinking, increased hunger or weight change Aller/Imm Allergy/Immunologic: No itchy eyes, seasonal allergy symptoms, hives or wheezing Dwight/Lymp Hematologic/Lymphatic: No easy bleeding, easy bruising or enlarged lymph nodes Exam Const General: cooperative, healthy appearing and comfortable Neck Neck: normal visual inspection, full ROM and supple Neck mass: No Lymphatic: no lymphadenopathy noted Chest Chest palpation & inspection: normal inspection of the chest Skin General: no rashes or lesions noted Neuro General: normal light touch, pain and propioception Motor: strength 5/5 throughout Sensory Exam: no sensory deficits noted Coordination: [id number] test normal Coding Level of Care Code Off vis,est,level 3 Diagnoses Right arm weakness R29.898 Assessment and Plan Assessment and Plan (1) Right arm weakness: Status: Acute Plan: Patient has a completely normal physical examination. At times he feels an intense sharp pain down his right arm and sometimes it just feels weak. I will get a cervical spine and if it shows narrowing of the disc it should be followedup with an MRI scan. If it is unremarkable I would do an EMG to see if there jonelle nerve entrapment somewhere else along the path of the brachial plexus. Orders: Orders Cerv Spine 2 or 3 Views Today R29.898 - Other symptoms and signs involving the musculoskeletal system 10/10/24 1435 <Electronically signed by Elvin encarnacion DO> Date _ Elvin Prieto DO Cosigner Signature: Date (if applicable) CC: ~ [facility] Work Phone: 1(491) 629-876805-30-2025 Consult note Author Gio Romero [facility] Note Date/Time August 31, 2024 11:52 am [facility] Medical Records Department [address] [place] [address] Pre-Anesthesia Evaluation 08/31/24 1146 MR#: [id number] Acct: [id number] Name: SIMON GRANADO Rep #:[id number] : 1965 58 From: Gio Romero MD PCP: Dr. Elvin Prieto, DO Status:RE G SDC Y Race: C Location: [address] ASA Classification* ASA Classification ASA Classification: 2 Assessment & Plan Anesthesia* Anesthesia Assessment Anesthesia Assessment: Discussed sedation and/or anesthesia options, risks, benefits, and alternatives with patient/parents/legal guardian/POA. Questions invited. The patient/parents/legal guardian/POA seems to understand and agrees to proceedwith anesthesia plan. Reviewed the physical assessment, medical history, allergy history and patient home medications list prior to surgery/procedure/anesthetic and documented any changes. Performed airway and anesthesia risk assessments. Anesthesia Type Anesthesia Type: MAC History Source History Obtained from:: Patient and Chart Anesthesia Focused Assessment* Temperature: 97.9 F Pulse Rate: 63 Blood Pressure: 142/88 Respiratory Rate: 16 Pulse Ox: 98 Oxygen Delivery Method: Room Air Airway Assessment Mouth opens: >3 cm Mallampati Score: III Teeth Condition: Intact Neck Range of motion (ROM): Limited ROM (Slight decrease in extension) Focused Labs Anesthesia Preop lab: CBC WBC 6.1 K/mm3 (4.4-11.0) 11/28/18 09:55 11/28/18 RBC 5.40 M/mm3 (4.6-6.2) 11/28/18 09:55 11/28/18 Hgb 16.1 g/dL (13.0-16.5) 11/28/18 09:55 11/28/18 Hct 46.8 % (40-54) 11/28/18 09:55 11/28/18 Plt Count 200 K/mm3 (150-450) 11/28/18 09:55 11/28/18 CHEMISTRY Potassium 4.3 mmol/L (3.3-5.1) 07/17/24 14:36 07/17/24 Sodium 137 mmol/L (133-145) 07/17/24 14:36 07/17/24 BUN 19 mg/dL (4-19) 07/17/24 14:36 07/17/24 Creatinine 1.28 mg/dL (0.70-1.20) H 07/17/24 14:36 Glucose 124 mg/dL (70-99) H 07/17/24 14:36 07/17/24 TSH 1.52 uIU/mL (0.358-3.74) 11/28/18 09:55 COAG Pre-Assessment Diagnosis/Proposed Procedure Planned Operative Procedure(s): CSCOPE Anesthesia History Anesthesia History - color buffer: Anesthesia History - color buffer Hx Hospitalization No 08/29/24 10:51 Any Problems With Anesthesia No 08/29/24 10:51 Cholinesterase deficiency No 08/29/24 10:51 You/Your Family Experience No 08/29/24 10:51 fever (hyperthermia) with Relationship Recent Exposure to Contagious No 08/31/24 11:24 Disease Does patient have nerve No 08/29/24 10:51 stimulator Patient instructed to have device shut off --Does patient have Pacemaker No 08/31/24 11:24 or ICD? When Was Last Pacemaker Check QUESTION #4 FULL TEXT: You/Your Family Experience fever (hyperthermia) with Anesthesia Last Oral Intake Last Oral intake: Last Oral Intake NPO since Meds taken in AM with sips of No 08/31/24 11:24 water? Meds patient instructed to take am of surgery Any additional information?: Yes NPO since: 08:00 (Patient finished prep at 8 AM.) Meds taken in AM with sips of water?: No PONV PONV - color buffer: PONV - color buffer Female No 08/29/24 10:51 HX of Motion Sickness No 08/29/24 10:51 HX of N/V After Surgery No 08/29/24 10:51 Non-Smoker Yes 08/29/24 10:51 Duration of Surgery greater No 08/29/24 10:51 than 60 minutes Number of Risk Factors 1 08/29/24 10:51 PONV Score Low Risk 08/29/24 10:51 Height & Weight Height & Weight: Anesthesia: Height & Weight Height 6 ft 5 in 08/31/24 11:24 Weight: 104 kg 08/31/24 11:24 Body Mass Index (BMI) 27.1 08/31/24 11:24 Respiratory Assessment Respiratory Assessment - color buffer: Respiratory Tract Infection Hx - color buffer Hx Respiratory Tract Infection No 08/29/24 10:51 STOP Sleep Apnea STOP Sleep Apnea - color buffer: STOP Sleep Apnea - color buffer Hx Hypertension No 08/29/24 10:51 Hx Sleep Apnea No 08/29/24 10:51 CPAP BIPAP Do you snore loudly (louder No 08/29/24 10:51 than talking or can be heard Do you often feel tired/ No 08/29/24 10:51 fatigued/ sleepy during daytime? Has anyone observed you stop No 08/29/24 10:51 breathing during sleep? STOP Results Negative 08/29/24 10:51 QUESTION #5 FULL TEXT : Do you snore loudly (louder than talking or can be heard through closed doors)? 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 Specify any problems Hx of Preganancy in last 3 N/A 08/29/24 10:51 Months Nurse Filling Out Transfusion NBUCHER 08/29/24 10:51 & Questions: Date: 08/29/24 08/29/24 10:51 Time: 10:51 08/29/24 10:51 Patient unable to answer at this time (ie. confused, unrespo /Reproduction History /Reproductive History - color buffer: /Reproductive Hx- color buffer Hx Now No 08/29/24 10:51 Gestational Age (in weeks): EDC: Hx Hx Para Hx Section SAB No 08/29/24 10:51 Active Medications Active Medications: Current Medications Generic Name Dose Route Start Last Admin Trade Name Freq PRN Reason Stop Dose Admin Lactated Ringer's 1,000 mls @ 15 mls/hr 08/31/24 11:00 08/31/24 11:28 IV 15 mls/hr .Q48H JANE Administration PFSH Medical History Wears glasses Non-smoker Family history of colon cancer in mother Right inguinal hernia Chronic right hip pain Hemorrhoid Hay fever SOB (shortness of breath) Seasonal allergies Home Medications ?Medication ?Instructions ?Recorded ?Last Taken ?Type NK 06/14/24 Unknown History Allergy/AdvReac Type Severity Reaction Status Date / Time No Known Allergies Allergy Verified 08/31/24 11:22 Family History Mother Breast cancer Colon cancer, Onset Age: 56 Father Heart disease Grandmother Diabetes Brother Colon polyps Surgical History History of oral surgery History of colonoscopy (~2011) Social History adopted: No household members: spouse number of children: 1 current occupational status: employed 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 08/31/24 1152 <Electronically signed by Gio ramirez MD> Date _ Gio Romero MD Cosigner Signature: Date CC: ~ Signed [facility] Work Phone: 1(888) 233-995105-30-2025 Consult note [facility] Medical Records Department [facility] [place] [address] Anesthesia Postop Eval I 08/31/24 1244 MR#: [id number] Acct: [id number] Name: SIMON GRANADO Rep #:[id number] : 1965 58 From: Matthew Hernadez PCP: Dr. Elvin Prieto, DO Status:PARAS PEREZ Y Race: C Location: [place] [address] Anesthesia: Postop Eval I Current Vital Signs Temperature: 97.2 F Pulse Rate: 75 Blood Pressure: 96/74 Respiratory Rate: 16 Pulse Ox: 93 Oxygen Delivery Method: Room Air Assessment Airway patent: Yes Spontaneous unlabored respirations: Yes Mental status: Asleep nausea: No Vomiting: No Anesthesia Complication: No Fluid Hydration Crystalloid volume administer (ml): 700 Total IV fluid infused: 700 Progress Note Anesthesia document: Postop Eval 1 completed: Yes 08/31/24 1245 > Date _ Matthew Weinstein Signature: Date CC: ~ Signed [facility]05-30-2025 Procedure note [facility] Medical Records Department [address] [place] [address] Colonoscopy Report MR#: [id number] Acct: [id number] Name: SIMON GRANADO Rep #:[id number] : 1965 58 From: Fernando ames MD PCP: Dr. Elvin Prieto, DO Status:PARAS Alas [facility] Patient Name: Simon Granado Procedure Date: 08/31/2024 12:05 PM Date of : 1965 Age: 58 Procedure: Colonoscopy Indications: Screening in patient at increased risk: Colorectal cancer in mother before age 60 Providers: Fernando Ritchie MD Referring MD: Elvin Prieto Medicines: Propofol per Anesthesia Patient Profile: This is a 58 year old male. Refer to note in patient chart for documentation of history and physical. Last Colonoscopy: 5 years ago. Complications: No immediate complications. Procedure: Pre-Anesthesia Assessment: - Prior to the procedure, a History and Physical was performed, and patient medications and allergies were reviewed. The patient's tolerance of previous anesthesia was also reviewed. The risks and benefits of the procedure and the sedation options and risks were discussed with the patient. All questions were answered, and informed consent was obtained. Prior Anticoagulants: The patient has taken no anticoagulant or antiplatelet agents. After reviewing the risks and benefits, the patient was deemed in satisfactory condition to undergo the procedure. After I obtained informed consent, the scope was passed under direct vision. Throughout the procedure, the patient's blood pressure, pulse, and oxygen saturations were monitored continuously. The Colonoscope was introduced through the anus and advanced to the cecum, identified by appendiceal orifice and ileocecal valve. The colonoscopy was performed without difficulty. The patient tolerated the procedure well. The quality of the bowel preparation was good. The ileocecal valve, appendiceal orifice, and rectum were photographed. Scope In: 12:13:47 PM Scope Withdrawal Time 0 hours 16 minutes 24 seconds Scope Out: 12:35:36 PM Total Procedure Duration Time 0 hours 21 minutes 49 seconds Findings: The entire examined colon appeared normal on direct and retroflexion views. Impression: - The entire examined colon is normal on direct and retroflexion views. - No specimens collected. Recommendation: - Discharge patient to home. - Resume previous diet. - Continue present medications. - Repeat colonoscopy in 5 years for screening purposes. Procedure Code(s): --- Professional --- 54114, Colonoscopy, flexible; diagnostic, including collection of specimen(s) by brushing or washing, when performed (separate procedure) Diagnosis Code(s): --- Professional --- Z80.0, Family history of malignant neoplasm of digestive organs CPT copyright 2021 [employer]. All rights reserved. The codes documented in this report are preliminary and upon office director review may be revised to meet current compliance requirements. Fernando Ritchie MD 08/31/2024 12:37:49 PM This report has been signed electronically. Number of Addenda: 0 Note Initiated On: 08/31/2024 12:05 PM 08/31/24 1238 Date _ Fernando Weinstein Signature: Date (if indicated) CC: Dr. Fernando Ritchie MD; Dr. Elvin Prieto, DO ~ Date Dictated: 08/31/24 1205 Date Transcribed: Manager Market Intelligence: AC Signed [facility]05-30-2025 Procedure note [facility] Medical Records Department [address] [place] [address] Operative Report - CC Letter MR#: [id number] Acct: [id number] Name: SIMON GRANADO Rep #:[id number] : 1965 58 From: Fernando ames MD PCP: Dr. Elvin Prieto, DO Status:[facility] 08/31/2024 Elvin Prieto Re : Colonoscopy procedure for Simon Granado Dear Dr. Prieto This procedure was performed on Saturday, August 31, 2024. My impressions and recommendations are as follows: Impressions : - The entire examined colon is normal on direct and retroflexion views. - No specimens collected. Recommendations : - Discharge patient to home. - Resume previous diet. - Continue present medications. - Repeat colonoscopy in 5 years for screening purposes. My findings are described in the full procedure note, which is enclosed. If I can be of further assistance, please feel free to contact me at Doctor phone number(s): , Work: . Sincerely, Fernando Ritchie MD 08/31/2024 12:37:49 PM This report has been signed electronically. 08/31/24 1238 Date _ Fernando Weinstein Signature: Date (if indicated) CC: Dr. Fernando Ritchie MD; Dr. Elvin Prieto, DO ~ Date Dictated: 08/31/24 1205 Date Transcribed: Manager Market Intelligence: ANJEL Signed [facility]05-30-2025 History and physical note [facility] Medical Records Department [address] [place] [address] History & Physical Exam 08/31/24 1210 MR#: [id number] Acct: [id number] Name: SIMON GRANADO Rep #:[id number] : 1965 58 From: Fernando ames MD PCP: Dr. Elvin Prieto, Status:[facility] Location: [place] [address] HPI - General HPI Narrative SIMON GRANADO, is a 58 M who presents for surveillance colonoscopy. His last colonoscopy was 5 yearsago and was normal. He has colonoscopies every 5 years due to maternal family history of colon cancer under age 60. He denies abdominal pain or blood in the stool. [facility] Medical History Wears glasses Non-smoker Family history of colon cancer in mother Right inguinal hernia Chronic right hip pain Hemorrhoid Hay fever SOB (shortness of breath) Seasonal allergies Home Medications ?Medication ?Instructions ?Recorded ?Last Taken ?Type NK 06/14/24 Unknown History Allergy/AdvReac Type Severity Reaction Status Date / Time No Known Allergies Allergy Verified 08/31/24 11:22 Family History Mother Breast cancer Colon cancer, Onset Age: 56 Father Heart disease Grandmother Diabetes Brother Colon polyps Surgical History History of oral surgery History of colonoscopy (~2011) Social History adopted: No household members: spouse number of children: 1 current occupational status: employed 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[place] pets and animals: No sexually active: Yes Smoking Status: Never smoker alcohol intake: current alcohol intake frequency: a few times a week Alcohol type: beer substance use type: does not use caffeine: Yes (2) Type: coffee what type of physical activity do you participate in: yoga frequency: 3-4 times per week do you feel safe at home: Yes Past Medical/Surgical History Planned Operation Planned Operative Procedure(s): CSCOPE S.O.S: No Previous Hospitalizations/Surgeries HX Hospitalizations: No HX of Surgeries: cscope Any Problems With Anesthesia: No You/Your Family Experience Fever (Hyperthermia) With Anes: No Cholinesterase deficiency: No Cardiovascular Hx Chest Pain within Last 2 months: No Hx of Irregular Heartbeat and/or Afib: No Hx Heart Attack: No Hx Congestive Heart Failure: No Hx Rheumatic Fever: No Hx Hypertension: No Hx Internal Defibrillator: No Hx Pacemaker: No Hx Cardiac Catheterization: No Hx Cardiac Surgery/Stents/Etc.: No Hx Stress Test: No Hx Pain in Legs when Walking/Leg Cramps: No Respiratory Chronic Cough: No HX of Shortness of Breath: No (sob occ prn inhaler) Hoarseness: No Hx Chronic Obstructive Pulmonary Disease (COPD): No Hx Asthma: No Hx Emphysema: No Hx Sleep Apnea: No Hx Respiratory Tract Infection/Cold (presently): No Do You Snore Loudly (louder than talking or can be heard): No Do You Often Feel Tired/ Fatigued/ Sleepy Dring Daytime?: No Has Anyone Observed You Stop Breathing During Sleep?: No Result (for STOP score): Negative Hx Smoking: No Smoking Status: Never smoker Gastrointestinal Hx Gastrointestinal Disorders: No Hx Gastrointestinal Bleed: No Hx Ulcer: No Hx Hiatal Hernia: No Difficulty Chewing/Swallowing: No Special diet followed at home: No Hx Unplanned Weight Loss of 20#: No HX Unplanned Weight Gain of 20#: No Neurological Hx Seizures: No HX Syncope/Blackout Spells/Unconsciousness: No Hx Transient Ischemic Attacks (TIA): No Hx Multiple Sclerosis: No Hx Parkinson's Disease: No Hx Head/Neck Injury: No Hx Headaches: Yes (occ) Hx Back Injury/Pain: No Recent Onset of Speech Difficulty: No Restless Legs: No Does patient have nerve stimulator: No Blood Disorder Hx Leukemia: No Bleeding Tendencies: No Hx Deep Vein Thrombosis: No Hx High Cholesterol: No Blood Transmitted Disease: No Hx Hepatitis: No Hx Cirrhosis: No Hx Anemia: No Hx Blood Disorders: No Reproduction : No Genitourinary Hx Renal Disease: No Musculoskeletal Hx Arthritis: No Hx Rheumatoid Arthritis: No Hx Gout: No Recent Onset of an Orthopedic Problem: No Endocrine Hx Diabetes: No Thyroid Disease: No Hx Steroid Therapy: No Psycho/Social Hx Substance Use: No Hx Alcohol Use: Yes (occ) Hx Anxiety: No Hx Depression: No Mental Illness: No Hx Dementia: No Miscellaneous Hx Cancer: No Recent Exposure to Contagious Disease: No Hx of C-Diff: No Any Loose Teeth: No Allergies No Known Allergies Allergy (Verified 08/31/24 11:22) Discharge Is Pt Admitted From a Penitentiary, or a Mcfp: No After D/C, Where Do you Plan to Go: Return Home Vital Signs Vital Signs Vital Signs: 08/31/24 11:24 08/31/24 11:24 08/31/24 11:52 Temperature 97.9 F 97.9 F Temperature Source Temporal Pulse Rate 63 63 Respiratory Rate 16 16 Respiratory Pattern Normal Blood Pressure 142/88 H 142/88 H Blood Pressure Mean 106 Blood Pressure Source Monitor Blood Pressure Position Sitting Blood Pressure Location Right Arm Pulse Ox 98 98 Oxygen Delivery Method Room Air Room Air Weight Weight: 229 lb 4.492 oz Body Mass Index (BMI) 27.1 Physical Exam Const alert and oriented x3 HEENT normocephalic Eyes PERRL Resp normal respiratory effort and normal air movement Cardio regular rate and regular rhythm GI soft to palpation, non-tender and non-distended Extremity normal to inspection Assessment & Plan Assessment/Plan (1) Encounter for screening for malignant neoplasm of colon: PLAN: I explained endoscopy in detail to the patient. I explained the risks including but not limited to stroke or heart attack with anesthesia, perforationof the GI tract, bleeding, infection. I explained that any of these could necessitate further emergency surgery. The patient understands and all questions were answered sufficiently. The patient wishes to proceed with procedure. Fernando Ritchie MD Pager: [facility] [address] [place] [address], [address] [place] [address] Office: Surgery Risks - Colonoscopy Risks Include but are not Limited To: Risks include but are not limited to: Bleeding, perforation requiring further surgery, inability to complete colonoscopy requiring barium enema. 08/31/24 1211 Cosigner Signature (if applicable): CC: Dr. Fernando Ritchie MD; Dr. Elvin Prieto, DO~ Signed [facility]05-30-2025 [facility] Medical Records Department [address] [place] [address] History Physical Exam 08/31/24 1210 MR#: [id number] Acct: [id number] Name: SIMON GRANADO Rep #: [id number] : 1965 58 From: Fernando Ritchie MD PCP: Dr. Elvin Prieto, DO [place] [place]: [address] - [facility] HPI Narrative SIMON GRANADO, is a 58 M who presents for surveillance colonoscopy. His last colonoscopy was 5 years ago and was normal. He has colonoscopies every 5 years due to maternal family history of colon cancer under age 60. He denies abdominal pain or blood in the stool. [facility] Medical History Wears glasses Non-smoker Family history of colon cancer in mother Right inguinal hernia Chronic right hip pain Hemorrhoid Hay fever SOB (shortness of breath) Seasonal allergies Home Medications ???Medication ???Instructions ???Recorded ???Last Taken ???Type NK 06/14/24 Unknown History Allergy/AdvReac Type Severity Reaction Status Date / Time No Known Allergies Allergy Verified 08/31/24 11:22 Family History Mother Breast cancer Colon cancer, Onset Age: 56 Father Heart disease Grandmother Diabetes Brother Colon polyps Surgical History History of oral surgery History of colonoscopy ( 2011) Social History adopted: No household members: spouse number of children: 1 current occupational status: employed 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[place] pets and animals: No sexually active: Yes Smoking Status: Never smoker alcohol intake: current alcohol intake frequency: a few times a week Alcohol type: beer substance use type: does not use caffeine: Yes (2) Type: coffee what type of physical activity do you participate in: yoga frequency: 3-4 times per week do you feel safe at home: Yes Past Medical/Surgical History Planned Operation Planned Operative Procedure(s): CSCOPE S.O.S: No Previous Hospitalizations/Surgeries HX Hospitalizations: No HX of Surgeries: cscope Any Problems With Anesthesia: No You/Your Family Experience Fever (Hyperthermia) With Anes: No Cholinesterase deficiency: No Cardiovascular Hx Chest Pain within Last 2 months: No Hx of Irregular Heartbeat and/or Afib: No Hx Heart Attack: No Hx Congestive Heart Failure: No Hx Rheumatic Fever: No Hx Hypertension: No Hx Internal Defibrillator: No Hx Pacemaker: No Hx Cardiac Catheterization: No Hx Cardiac Surgery/Stents/Etc.: No Hx Stress Test: No Hx Pain in Legs when Walking/Leg Cramps: No Respiratory Chronic Cough: No HX of Shortness of Breath: No (sob occ prn inhaler) Hoarseness: No Hx Chronic Obstructive Pulmonary Disease (COPD): No Hx Asthma: No Hx Emphysema: No Hx Sleep Apnea: No Hx Respiratory Tract Infection/Cold (presently): No Do You Snore Loudly (louder than talking or can be heard): No Do You Often Feel Tired/ Fatigued/ Sleepy Dring Daytime?: No Has Anyone Observed You Stop Breathing During Sleep?: No Result (for STOP score): Negative Hx Smoking: No Smoking Status: Never smoker Gastrointestinal Hx Gastrointestinal Disorders: No Hx Gastrointestinal Bleed: No Hx Ulcer: No Hx Hiatal Hernia: No Difficulty Chewing/Swallowing: No Special diet followed at home: No Hx Unplanned Weight Loss of 20#: No HX Unplanned Weight Gain of 20#: No Neurological Hx Seizures: No HX Syncope/Blackout Spells/Unconsciousness: No Hx Transient Ischemic Attacks (TIA): No Hx Multiple Sclerosis: No Hx Parkinson's Disease: No Hx Head/Neck Injury: No Hx Headaches: Yes (occ) Hx Back Injury/Pain: No Recent Onset of Speech Difficulty: No Restless Legs: No Does patient have nerve stimulator: No Blood Disorder Hx Leukemia: No Bleeding Tendencies: No Hx Deep Vein Thrombosis: No Hx High Cholesterol: No Blood Transmitted Disease: No Hx Hepatitis: No Hx Cirrhosis: No Hx Anemia: No Hx Blood Disorders: No Reproduction : No Genitourinary Hx Renal Disease: No Musculoskeletal Hx Arthritis: No Hx Rheumatoid Arthritis: No Hx Gout: No Recent Onset of an Orthopedic Problem: No Endocrine Hx Diabetes: No Thyroid Disease: No Hx Steroid Therapy: No Psycho/Social Hx Substance Use: No Hx Alcohol Use: Yes (occ) Hx Anxiety: No Hx Depression: No Mental Illness: No Hx Dementia: No Miscellaneous Hx Cancer: No Recent Exposure to Contagious Disease: No Hx of C-Diff: No Any Loose Teeth: No Allergies No Known Allergies Allergy (Verified 08/31/24 11:22) Discharge Is Pt Admitted From a Penitentiary, or a Mcfp: No After D/C, Where Do you Plan to Go: Return Home Vital Signs Vital Si (more content not included)...[facility]05-30-2025 Consult note [facility] Medical Records Department [address] [place] [address] Pre-Anesthesia Evaluation 08/31/24 1146 MR#: [id number] Acct: [id number] Name: SIMON GRANADO Rep #:[id number] : 1965 58 From: Gio Romero MD PCP: Dr. Elvin Prieto, DO Status:RE G [facility] Y Race: C Location: [place] [address] ASA Classification* ASA Classification ASA Classification: 2 Assessment & Plan Anesthesia* Anesthesia Assessment Anesthesia Assessment: Discussed sedation and/or anesthesia options, risks, benefits, and alternatives with patient/parents/legal guardian/POA. Questions invited. The patient/parents/legal guardian/POA seems to understand and agrees to proceedwith anesthesia plan. Reviewed the physical assessment, medical history, allergy history and patient home medications list prior to surgery/procedure/anesthetic and documented any changes. Performed airway and anesthesia risk assessments. Anesthesia Type Anesthesia Type: MAC History Source History Obtained from:: Patient and Chart Anesthesia Focused Assessment* Temperature: 97.9 F Pulse Rate: 63 Blood Pressure: 142/88 Respiratory Rate: 16 Pulse Ox: 98 Oxygen Delivery Method: Room Air Airway Assessment Mouth opens: >3 cm Mallampati Score: III Teeth Condition: Intact Neck Range of motion (ROM): Limited ROM (Slight decrease in extension) Focused Labs Anesthesia Preop lab: CBC WBC 6.1 K/mm3 (4.4-11.0) 11/28/18 09:55 11/28/18 RBC 5.40 M/mm3 (4.6-6.2) 11/28/18 09:55 11/28/18 Hgb 16.1 g/dL (13.0-16.5) 11/28/18 09:55 11/28/18 Hct 46.8 % (40-54) 11/28/18 09:55 11/28/18 Plt Count 200 K/mm3 (150-450) 11/28/18 09:55 11/28/18 CHEMISTRY Potassium 4.3 mmol/L (3.3-5.1) 07/17/24 14:36 07/17/24 Sodium 137 mmol/L (133-145) 07/17/24 14:36 07/17/24 BUN 19 mg/dL (4-19) 07/17/24 14:36 07/17/24 Creatinine 1.28 mg/dL (0.70-1.20) H 07/17/24 14:36 Glucose 124 mg/dL (70-99) H 07/17/24 14:36 07/17/24 TSH 1.52 uIU/mL (0.358-3.74) 11/28/18 09:55 COAG Pre-Assessment Diagnosis/Proposed Procedure Planned Operative Procedure(s): CSCOPE Anesthesia History Anesthesia History - color buffer: Anesthesia History - color buffer Hx Hospitalization No 08/29/24 10:51 Any Problems With Anesthesia No 08/29/24 10:51 Cholinesterase deficiency No 08/29/24 10:51 You/Your Family Experience No 08/29/24 10:51 fever (hyperthermia) with Relationship Recent Exposure to Contagious No 08/31/24 11:24 Disease Does patient have nerve No 08/29/24 10:51 stimulator Patient instructed to have device shut off --Does patient have Pacemaker No 08/31/24 11:24 or ICD? When Was Last Pacemaker Check QUESTION #4 FULL TEXT: You/Your Family Experience fever (hyperthermia) with Anesthesia Last Oral Intake Last Oral intake: Last Oral Intake NPO since Meds taken in AM with sips of No 08/31/24 11:24 water? Meds patient instructed to take am of surgery Any additional information?: Yes NPO since: 08:00 (Patient finished prep at 8 AM.) Meds taken in AMwith sips of water?: No PONV PONV - color buffer: PONV - color buffer Female No 08/29/24 10:51 HX of Motion Sickness No 08/29/24 10:51 HX of N/V After Surgery No 08/29/24 10:51 Non-Smoker Yes 08/29/24 10:51 Duration of Surgery greater No 08/29/24 10:51 than 60 minutes Number of Risk Factors 1 08/29/24 10:51 PONV Score Low Risk 08/29/24 10:51 Height & Weight Height & Weight: Anesthesia: Height & Weight Height 6 ft 5 in 08/31/24 11:24 Weight: 104 kg 08/31/24 11:24 Body Mass Index (BMI) 27.1 08/31/24 11:24 Respiratory Assessment Respiratory Assessment - color buffer: Respiratory Tract Infection Hx - color buffer Hx Respiratory Tract Infection No 08/29/24 10:51 STOP Sleep Apnea STOP Sleep Apnea - color buffer: STOP Sleep Apnea - color buffer Hx Hypertension No 08/29/24 10:51 Hx Sleep Apnea No 08/29/24 10:51 CPAP BIPAP Do you snore loudly (louder No 08/29/24 10:51 than talking or can be heard Do you often feel tired/ No 08/29/24 10:51 fatigued/ sleepy during daytime? Has anyone observed you stop No 08/29/24 10:51 breathing during sleep? STOP Results Negative 08/29/24 10:51 QUESTION #5 FULL TEXT : Do you snore loudly (louder than talking or can be heard through closeddoors)? 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 Specify any problems Hx of Preganancy in last 3 N/A 08/29/24 10:51 Months Nurse Filling Out Transfusion NBUCHER 08/29/24 10:51 & Questions: Date: 08/29/24 08/29/24 10:51 Time: 10:51 08/29/24 10:51 Patient unable to answer at this time (ie. confused, unrespo /Reproduction History /Reproductive History - color buffer: /Reproductive Hx- color buffer Hx Now No 08/29/24 10:51 Gestational Age (in weeks): EDC: Hx Hx Para Hx Section SAB No 08/29/24 10:51 Active Medications Active Medications: Current Medications Generic Name Dose Route Start Last Admin Trade Name Freq PRN Reason Stop Dose Admin Lactated Ringer's 1,000 mls @ 15 mls/hr 08/31/24 11:00 08/31/24 11:28 IV 15 mls/hr .Q48H JANE Administration PFSH Medical History Wears glasses Non-smoker Family history of colon cancer in mother Right inguinal hernia Chronic right hip pain Hemorrhoid Hay fever SOB (shortness of breath) Seasonal allergies Home Medications ?Medication ?Instructions ?Recorded ?Last Taken ?Type NK 06/14/24 Unknown History Allergy/AdvReac Type Severity Reaction Status Date / Time No Known Allergies Allergy Verified 08/31/24 11:22 Family History Mother Breast cancer Colon cancer, Onset Age: 56 Father Heart disease Grandmother Diabetes Brother Colon polyps Surgical History History of oral surgery History of colonoscopy (~2011) Social History adopted: No household members: spouse number of children: 1 current occupational status: employed 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 08/31/24 1152 ashley CONSTANTINO> Date _ Gio Cabreraignomar Signature: Date CC: ~ Signed [facility]04-15-2025 Evaluation note* Diagnosis Onset Date Resolution Status Admit Date Annual physical exam acute Apri l 2024 1:47pm Seborrheic keratosis acute Apri l 2024 1:48pm [facility] Work Phone: 1(850) 207-697304-15-2025 Evaluation note* Diagnosis Onset Date Resolution Status Admit Date Annual physical exam acute Apri l 2024 1:47pm Seborrheic keratosis acute Apri l 2024 1:48pm Encounter for screening for malignant neoplasm of colon acute August 31, 2024 10:53am [facility] Work Phone: 1(731) 905-970904-15-2025 Evaluation note* Diagnosis Onset Date Resolution Status Admit Date Annual physical exam acute Apri l 2024 1:47pm Seborrheic keratosis acute Apri l 2024 1:48pm Encounter for screening for malignant neoplasm of colon acute August 31, 2024 10:53am Right arm weakness acute October 102024 1:59pm [facility] Work Phone: Consult note Author Matthew Hernadez [facility] Note Date/Time August 31, 2024 12:45 pm [facility] Medical Records Department [address] [place] [address] Anesthesia Postop Eval I 08/31/24 1244 MR#: [id number] Acct: [id number] Name: SIMON GRANADO EDFLORI Rep #:[id number] : 1965 58 From: Matthew Hernadez PCP: Dr. Elvin Prieto, DO Status:[facility] [place] Race: C Location: [place] [address] Anesthesia: Postop Eval I Current Vital Signs Temperature: 97.2 F Pulse Rate: 75 Blood Pressure: 96/74 Respiratory Rate: 16 Pulse Ox: 93 Oxygen Delivery Method: Room Air Assessment Airway patent: Yes Spontaneous unlabored respirations: Yes Mental status: Asleep nausea: No Vomiting: No Anesthesia Complication: No Fluid Hydration Crystalloid volume administer (ml): 700 Total IV fluid infused: 700 Progress Note Anesthesia document: Postop Eval 1 completed: Yes 08/31/24 1245 <Electronically signed by Matthew Hernadez > Date _ Matthew Weinstein Signature: Date CC: ~ Signed [facility] Work Phone: evaluation note* Diagnosis Onset Date Resolution Status Neck pain noneactive [facility] Work Phone: Evaluation note* Diagnosis Onset Date Resolution Status Annual physical exam acute Urinary incontinence acute Erectile dysfunction chronic [facility] Work Phone: History and physical note Author Fernando Ritchie [facility] Note Date/Time August 31, 2024 12:11 pm [facility] Medical Records Department [address] [place] [address] History & Physical Exam 08/31/24 1210 MR#: [id number] Acct: [id number] Name: SIMON GRANADO AMBER Rep #:[id number] : 1965 58 From: Fernando ames MD PCP: Dr. Elvin Prieto, DO Status:[facility] [place] [address]-1 HPI - General HPI Narrative SIMON LOY, is a 58 M who presents for surveillance colonoscopy. His last colonoscopy was 5 years ago and was normal. He has colonoscopies every 5 years due to maternal family history of colon cancer under age 60. He denies abdominal pain or blood in the stool. [facility] Medical History Wears glasses Non-smoker Family history of colon cancer in mother Right inguinal hernia Chronic right hip pain Hemorrhoid Hay fever SOB (shortness of breath) Seasonal allergies Home Medications ?Medication ?Instructions ?Recorded ?Last Taken ?Type NK 06/14/24 Unknown History Allergy/AdvReac Type Severity Reaction Status Date / Time No Known Allergies Allergy Verified 08/31/24 11:22 Family History Mother Breast cancer Colon cancer, Onset Age: 56 Father Heart disease Grandmother Diabetes Brother Colon polyps Surgical History History of oral surgery History of colonoscopy (~2011) Social History adopted: No household members: spouse number of children: 1 current occupational status: employed 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/ [place] pets and animals: No sexually active: Yes Smoking Status: Never smoker alcohol intake: current alcohol intake frequency: a few times a week Alcohol type: beer substance use type: does not use caffeine: Yes (2) Type: coffee what type of physical activity do you participate in: yoga frequency: 3-4 times per week do you feel safe at home: Yes Past Medical/Surgical History Planned Operation Planned Operative Procedure(s): CSCOPE S.O.S: No Previous Hospitalizations/Surgeries HX Hospitalizations: No HX of Surgeries: cscope Any Problems With Anesthesia: No You/Your Family Experience Fever (Hyperthermia) With Anes: No Cholinesterase deficiency: No Cardiovascular Hx Chest Pain within Last 2 months: No Hx of Irregular Heartbeat and/or Afib: No Hx Heart Attack: No Hx Congestive Heart Failure: No Hx Rheumatic Fever: No Hx Hypertension: No Hx Internal Defibrillator: No Hx Pacemaker: No Hx Cardiac Catheterization: No Hx Cardiac Surgery/Stents/Etc.: No Hx Stress Test: No Hx Pain in Legs when Walking/Leg Cramps: No Respiratory Chronic Cough: No HX of Shortness of Breath: No (sob occ prn inhaler) Hoarseness: No Hx Chronic Obstructive Pulmonary Disease (COPD): No Hx Asthma: No Hx Emphysema: No Hx Sleep Apnea: No Hx Respiratory Tract Infection/Cold (presently): No Do You Snore Loudly (louder than talking or can be heard): No Do You Often Feel Tired/ Fatigued/ Sleepy Dring Daytime?: No Has Anyone Observed You Stop Breathing During Sleep?: No Result (for STOP score): Negative Hx Smoking: No Smoking Status: Never smoker Gastrointestinal Hx Gastrointestinal Disorders: No Hx Gastrointestinal Bleed: No Hx Ulcer: No Hx Hiatal Hernia: No Difficulty Chewing/Swallowing: No Special diet followed at home: No Hx Unplanned Weight Loss of 20#: No HX Unplanned Weight Gain of 20#: No Neurological Hx Seizures: No HX Syncope/Blackout Spells/Unconsciousness: No Hx Transient Ischemic Attacks (TIA): No Hx Multiple Sclerosis: No Hx Parkinson's Disease: No Hx Head/Neck Injury: No Hx Headaches: Yes (occ) Hx Back Injury/Pain: No Recent Onset of Speech Difficulty: No Restless Legs: No Does patient have nerve stimulator: No Blood Disorder Hx Leukemia: No Bleeding Tendencies: No Hx Deep Vein Thrombosis: No Hx High Cholesterol: No Blood Transmitted Disease: No Hx Hepatitis: No Hx Cirrhosis: No Hx Anemia: No Hx Blood Disorders: No Reproduction : No Genitourinary Hx Renal Disease: No Musculoskeletal Hx Arthritis: No Hx Rheumatoid Arthritis: No Hx Gout: No Recent Onset of an Orthopedic Problem: No Endocrine Hx Diabetes: No Thyroid Disease: No Hx Steroid Therapy: No Psycho/Social Hx Substance Use: No Hx Alcohol Use: Yes (occ) Hx Anxiety: No Hx Depression: No Mental Illness: No Hx Dementia: No Miscellaneous Hx Cancer: No Recent Exposure to Contagious Disease: No Hx of C-Diff: No Any Loose Teeth: No Allergies No Known Allergies Allergy (Verified 08/31/24 11:22) Discharge Is Pt Admitted From a Penitentiary, or a Mcfp: No After D/C, Where Do you Plan to Go: Return Home Vital Signs Vital Signs Vital Signs: 08/31/24 11:24 08/31/24 11:24 08/31/24 11:52 Temperature 97.9 F 97.9 F Temperature Source Temporal Pulse Rate 63 63 Respiratory Rate 16 16 Respiratory Pattern Normal Blood Pressure 142/88 H 142/88 H Blood Pressure Mean 106 Blood Pressure Source Monitor Blood Pressure Position Sitting Blood Pressure Location Right Arm Pulse Ox 98 98 Oxygen Delivery Method Room Air Room Air Weight Weight: 229 lb 4.492 oz Body Mass Index (BMI) 27.1 Physical Exam Const alert and oriented x3 HEENT normocephalic Eyes PERRL Resp normal respiratory effort and normal air movement Cardio regular rate and regular rhythm GI soft to palpation, non-tender and non-distended Extremity normal to inspection Assessment & Plan Assessment/Plan (1) Encounter for screening for malignant neoplasm of colon: PLAN: I explained endoscopy in detail to the patient. I explained the risks including but not limited to stroke or heart attack with anesthesia, perforationof the GI tract, bleeding, infection. I explained that any of these could necessitate further emergency surgery. The patient understands and all questions were answered sufficiently. The patient wishes to proceed with procedure. Fernando Ritchie MD Pager: [facility] [address] [place] [address], [address] [place] [address] Office: Surgery Risks - Colonoscopy Risks Include but are not Limited To: Risks include but are not limited to: Bleeding, perforation requiring further surgery, inability to complete colonoscopy requiring barium enema. 08/31/24 1211 <Electronically signed by Fernando Ritchie MD> Cosigner Signature (if applicable): CC: Dr. Fernando Ritchie MD; Dr. Elvin Prieto, DO~ Signed [facility] Work Phone: Reason for referral (narrative)No reason for referral information availableWWright-[facility] Work Phone: Summary Purpose Family History No Family History Records Found Relationship Condition Age at Onset Recorded Date/T vu mother Malignant neoplasm of breast Unknown Malignant neoplasm of colon Unknown father Cardiac disease Unknown grandmother Diabetes mellitus Unknown Relationship Condition Age at Onset Recorded Date/T vu mother Malignant neoplasm of breast Unknown Malignant neoplasm of colon 56 father Cardiac disease Unknown grandmother Diabetes mellitus Unknown brother Polyp of colon Unknown Advance Directives No Advanced Directives Records Found Advance Directive Response Recorded Date/ Time Living Will Yes May 23 11:46am Power of Market Intelligence Consultant Yes May 23, 2019 11:46am Advance Directive Response Recorded Date/ Time Do you have a Healthcare Power of Market Intelligence Consultant? Yes August 29, 2024 10:51am Chief Complaint and Reason for Visit Chief Complaint RIGHT SIDED PAIN, NE CK-SHOULDER MUSCLE SPASM NECK/RX HERE Reason for Visit Neck pain Chief Complaint FOLLOW UP Reason for Visit Annual physical exam Urinary incontinence Erectile dysfunction Chief Complaint Admit Date Amb Documentation June 14, 2024 11: 45am ANNUAL PHYSICAL July 17, 2024 1:4 7pm MOLE REMOVAL July 18, 2024 1:4 8pm Reason for Visit Admit Date Annual physical exam July 17, 2024 1: 47pm Seborrheic keratosis July 18, 2024 1: 48pm Reason for Visit Admit Date Annual physical exam July 17, 2024 1: 47pm Seborrheic keratosis July 18, 2024 1: 48pm Encounter for screening for malignant ne oplasm of colon August 31, 2024 10:53am Chief Complaint Admit Date Amb Documentation June 14, 2024 11: 45am ANNUAL PHYSICAL July 17, 2024 1:4 7pm MOLE REMOVAL July 18, 2024 1:4 8pm ARM NUMBNESS/PAIN - NON EMERGENT October 1:59pm Reason for Visit Admit Date Annual physical exam July 17, 2024 1: 47pm Seborrheic keratosis July 18, 2024 1: 48pm Encounter for screening for malignant ne oplasm of colon August 31, 2024 10:53am Right arm weakness October 10, 2024 1:59p m Chief Complaint Admit Date ANNUAL PHYSICAL July 17, 2024 1:4 7pm MOLE REMOVAL July 18, 2024 1:4 8pm ARM NUMBNESS/PAIN - NON EMERGENT October 1:59pm right arm weakness October 12, 2024 12:3 8pm Additional Source Comments (unrecognized sect ion and content) No Status Records FoundNo Status Records Found INFORMATION SOURCE (unrecogn ized section and content) DATE CREATED AUTHOR 09/22/2017 [facility] ([place]) DATE CREATED AUTHOR AUTHOR'S ORGANIZ ATION 11/06/2024 [facility] Goals (unrecognized section and content) Goals may be documented in a n alternate sectionGoals may be documented in an alternate sectionGoals may be documented in an alternate sectionGoals may be documented in an alternate sectionGoals may be documented in an alternate section Care Teams (unrecognized sec tion and content) Team Status: Active Member Role Status Dates Dr. Elvin Prieto DO Primary Care Provider Active Team Status: Active Member Role Status Dates Dr. Elvin Prieto DO Primary Care Provider Active Start: June 14, 2024 [facility] Attending Provider Active Start: [facility] 2024 Team Status: Inactive Member Role Status Dates Dr. Elvin Prieto DO Primary Care Provider Active Start: July 17, 2024 End: July 17, 2024 Dr. Elvin Prieto DO Attending Provider Active Start: July 17, 2024 End: July 17, 2024 Dr. Elvin Prieto DO Referring Provider Active Start: July 17, 2024 End: July 17, 2024 Team Status: Inactive Member Role Status Dates Dr. Elvin Prieto DO Primary Care Provider Active Start: July 18, 2024 End: July 18, 2024 Dr. Elvin Prieto DO Attending Provider Active Start: July 18, 2024 End: July 18, 2024 Dr. Elvin Prieto DO Referring Provider Active Start: July 18, 2024 End: July 18, 2024 Team Status: Inactive Member Role Status Dates Dr. Elvin Prieto DO Primary Care Pr ovider, Attending Provider, Referring Provider Active Team Status: Inactive Member Role Status Dates Dr. Elvin Prieto DO Primary Care Provider, Attend ing Provider Active Team Status: Inactive Member Role Status Dates Dr. Elvin Prieto DO Primary Care Provider Active Start: August 31, 2024 End: August 31, 2024 Dr. Elvin Prieto DO Referring Provider Active Start: August 31, 2024 End: August 31, 2024 Dr. Fernando Ritchie MD Attending Provider Active Start: August 31, 2024 End: August 31, 2024 Team Status: Active Member Role Status Dates Dr. Elvin Prieto DO Primary Care Provider Active Start: August 31, 2024 Dr. Elvin Prieto DO Referring Provider Active Start: August 31, 2024 Dr. Fernando Ritchie MD Attending Provider Active Start: August 31, 2024 Dr. Fernando Ritchie MD Other Provider Active Start: August 31, 2024 Team Status: Active Member Role/Relationship Status Dates Dr. Elvin Prieto DO Primary Care Provider Active Team Status: Active Member Role/Relationship Status Dates Dr. Elvin Prieto DO Primary Care Provider Active Start: June 14, 2024 [facility] Attending Provider Active Start: [facility] 2024 Team Status: Inactive Member Role/Relationship Status Dates Dr. Elvin Prieto DO Primary Care Provider Active Start: July 17, 2024 End: July 17, 2024 Dr. Elvin Prieto DO Attending Provider Active Start: July 17, 2024 End: July 17, 2024 Dr. Elvin Prieto DO Referring Provider Active Start: July 17, 2024 End: July 17, 2024 Team Status: Inactive Member Role/Relationship Status Dates Dr. Elvin Prieto DO Primary Care Provider Active Start: July 17, 2024 End: July 17, 2024 Dr. Elvin Prieto DO Attending Provider Active Start: July 17, 2024 End: July 17, 2024 Dr. Elvin Prieto DO Referring Provider Active Start: July 17, 2024 End: July 17, 2024 Team Status: Inactive Member Role/Relationship Status Dates Dr. Elvin Prieto DO Primary Care Provider Active Start: July 18, 2024 End: July 18, 2024 Dr. Elvin Prieto DO Attending Provider Active Start: July 18, 2024 End: July 18, 2024 Dr. Elvin Prieto DO Referring Provider Active Start: July 18, 2024 End: July 18, 2024 Team Status: Inactive Member Role/Relationship Status Dates Dr. Elvin Prieto DO Primary Care Provider Active Start: August 31, 2024 End: August 31, 2024 Dr. Elvin Prieto DO Referring Provider Active Start: August 31, 2024 End: August 31, 2024 Dr. Fernando Ritchie MD Attending Provider Active Start: August 31, 2024 End: August 31, 2024 Team Status: Active Member Role/Relationship Status Dates Dr. Elvin Prieto DO Primary Care Provider Active Start: August 31, 2024 Dr. Elvin Prieto DO Referring Provider Active Start: August 31, 2024 Dr. Fernando Ritchie MD Attending Provider Active Start: August 31, 2024 Dr. Fernando Ritchie MD Other Provider Active Start: August 31, 2024 Team Status: Inactive Member Role/Relationship Status Dates Dr. Elvin Prieto DO Primary Care Provider Active Start: October 10, 2024 End: October 10, 2024 Dr. Elvin Prieto DO Attending Provider Active Start: October 10, 2024 End: October 10, 2024 Dr. Elvin Prieto DO Referring Provider Active Start: October 10, 2024 End: October 10, 2024 Team Status: Inactive Member Role/Relationship Status Dates Dr. Elvin Prieto DO Primary Care Provider Active Start: July 17, 2024 End: July 17, 2024 Dr. Elvin Prieto DO Attending Provider Active Start: July 17, 2024 End: July 17, 2024 Dr. Elvin Prieto DO Referring Provider Active Start: July 17, 2024 End: July 17, 2024 Team Status: Inactive Member Role/Relationship Status Dates Dr. Elvin Prieto DO Primary Care Provider Active Start: July 18, 2024 End: July 18, 2024 Dr. Elvin Prieto DO Attending Provider Active Start: July 18, 2024 End: July 18, 2024 Dr. Elvin Prieto DO Referring Provider Active Start: July 18, 2024 End: July 18, 2024 Team Status: Inactive Member Role/Relationship Status Dates Dr. Elvin Prieto DO Primary Care Provider Active Start: August 31, 2024 End: August 31, 2024 Dr. Elvin Prieto DO Referring Provider Active Start: August 31, 2024 End: August 31, 2024 Dr. Fernando Ritchie MD Attending Provider Active Start: August 31, 2024 End: August 31, 2024 Team Status: Active Member Role/Relationship Status Dates Dr. Elvin Prieto DO Primary Care Provider Active Start: August 31, 2024 Dr. Elvin Prieto DO Referring Provider Active Start: August 31, 2024 Dr. Fernando Ritchie MD Attending Provider Active Start: August 31, 2024 Dr. Fernadno Ritchie MD Other Provider Active Start: August 31, 2024 Team Status: Inactive Member Role/Relationship Status Dates Dr. Elvin Prieto DO Primary Care Provider Active Start: October 10, 2024 End: October 10, 2024 Dr. Elivn Prieto DO Attending Provider Active Start: October 10, 2024 End: October 10, 2024 Dr. Elvin Prieto DO Referring Provider Active Start: October 10, 2024 End: October 10, 2024 Team Status: Inactive Member Role/Relationship Status Dates Dr. Elvin Prieto DO Primary Care Provider Active Start: October 12, 2024 End: October 12, 2024 Dr. Elvin Prieto DO Attending Provider Active Start: October 12, 2024 End: October 12, 2024 Dr. Elvin Prieto DO Referring Provider Active Start: October 12, 2024 End: October 12, 2024 FOR RECORDS PERTAINING TO PATIENTS WHO ARE OR HAVE BEEN ENROLLED IN A CHEMICAL DEPENDENCY/SUBSTANCEABUSE PROGRAM, SOME INFORMATION MAY BE OMITTED. This clinical summary was aggregated from multiple sources. Caution should be exercised in using it in the provision of clinical care. This summary normalizes information from multiple sources, and as a consequence, information in this document may materially change the coding, format and clinical context of patient data. In addition, data may be omitted in some cases. CLINICAL DECISIONS SHOULD BE BASED ON THE PRIMARY CLINICAL RECORDS. [facility]. provides no warranty or guarantee of the accuracy or completeness of information in this document.
--- OUTSIDE RECORDS SUMMARY | 2024-11-07 17:30 | XMS RPT_ITS | CCD ---
Author Organization [facility] Care Team Providers Care Internet Project Manager Name Role Phone RIDERANGEL LUIS Unavailable Unavailable ELVIN PRIETO Unavailable Unavailable Dr. Elvin Prieto Primary Care Provider [phone] Dr. Elvin Prieto Referring Provider [phone] HEMAL Velarde Attending Provider Unavailab Dr. Elvin Trevino Primary Care Provider [phone] [phone] Dr. Elvin Prieto Attending Provider 1(330) Dr. Elvin Prieto Referring Provider 1(330) Dr. Elvin Prieto DO Primary Care Provider [phone] Wendy Hernandez Attending Provider Unavailable Dr. Elvin Prieto DO Attending Provider [phone] [phone] Dr. Elvin Prieto DO Referring Provider 1(330 [phone] Erma CONSTANTINO, Dr. King Attending Provider [phone] Erma CONSTANTINO, Dr. King Other Provider Dr. Elvin Prieto DO Primary Care Provider BrownElvin Referring Unavailable Brown, Elvin R Primary Care Unavailable BrownElvin R Attending Unavailable Conner, Elvin R Referring Unavailable Brown, Elvin R Primary Care Unavailable Brown, Elvin R Attending Unavailable Conner, Elvin R Primary Care Unavailable Wendy Hernandez Attending [...] Drug Class(es) Dates Sig (Normalized) Sig (Original) [place] (Nk) (4 sources) Start: 06-14-2024 [place] (Nk) A ctive June 14, 2024 12:00am Completed/Discontinued Medications Medication Drug Class(es) Dates Sig (Normalized) Sig (Original) [id number] actuat albuterol 0.09 mg/actuat metered dose [...] Viewson Cerv Spine 2 or 3 Views [facility] Imaging Services [address] [place], [place] [address] Cerv Spine 2 or 3 Views MR#: [id number] Acct: [id number] Name: SIMON GRANADO Rep #: [id number] : 1965 M 59 From: Sudhakar gilliland MD PCP: Dr. Elvin Prieto, Status: REG CLI Study: Cerv Spine 2 or 3 Views Date of Exam: 10/12/24 Exam# [id number] Ordering Dr: Elvin Prieto DO PROCEDURE: CERV [...] Multilevel disc space narrowing. Disclaimer: Reading Location: [place] [address] CC: Dr. Elvin Prieto, Rim Fire Charger Operator: Signed Normal [facility] Internal Medicine Office Vis ito 10-10-2024 Internal Medicine Office Visit [facility] [address] [place] [address] [place] [address] OFFICE VISIT Date of Service: 10/10/24 MR#: [id number] Acct: [id number] Name: SIMON GRANADO Rep #: [id number] : 1965 Provider: Dr. Elvin morrell DO Age/Sex: 59/M Location: [facility] Status: Signed Intake Vital Signs 08/31/24 11:24 [...] - NON EMERGENT Chief Complaint: arm pain Assistant Editor Required: No Accompanied by: Self Is patient [...] Sensory Exam: no sensory deficits noted Coordination: gycyhx-dr-gwnd test normal Coding Level of Care Code Off vis,est,level 3 Diagnoses Right arm weakness R29.898 Asse (more content not included)... Normal [facility] Colonoscopy Reporton 025 Colonoscopy Report [facility] Medical Records Department [address] [place] [address] Colonoscopy Report MR#: [id number] Acct: [id number] Name: SIMON GRANADO Rep #: [id number] : 1965 58 From: Fernando Ritchie MD PCP: Dr. Elvin Prieto, DO Status:REG [facility] Patient Name: Simon Granado Procedure Date: 08/31/2024 [...] screening purposes. Procedure Code(s): --- Professional --- 48016, Colonoscopy, flexible; diagnostic, including collection of specimen(s) by brushing or washing, when performed (separate procedure) Diagnosis Code(s): --- Professional --- Z80.0, Family history of malignant neoplasm of digestive organs CPT copyright 2021 [employer]. All rights reserved. The codes documented in this report are preliminary and upon auditing manager review may be revised to meet current compliance requirements. Fernando Ritchie MD 08/31/2024 12:37:49 PM This report has been signed electronically. Number of Addenda: 0 Note Initiated On: 08/31/2024 12:05 PM 08/31/24 1238 Date Fernando Weinstein Signature: Date (if indicated) CC: Dr. Fernando Ritchie MD; Dr. Elvin Prieto, DO Date Dictated: 08/31/24 1205 Date Transcribed: Rim Fire Charger Operator: ANJEL Cespedes [facility] MR/POSTOP.[facility] 08-31-2024 [address].[facility] Medical Records Department [address] [place] [address] Anesthesia Postop Eval I 08/31/24 1244 MR#: [id number] Acct: [id number] Name: SIMON GRANADO Rep #: [id number] : 1965 58 From: Matthew Hernadez PCP: Dr. Elvin Prieto, DO Status:REG SD Y Race: C Location: [place] [address] Anesthesia: Postop Eval I Current Vital Signs [...] Eval 1 completed: Yes 08/31/24 1245 Date Matthew Weinstein Signature: CC: Signed Normal [facility] MR/[id number] 08-31-2024 MR/POSTOPAN2 [facility] Medical Records Department [address] [place] [address] Anesthesia Postop Eval II 08/31/24 163 MR#: [id number] Acct: [id number] Name: SIMON GRANADO Rep #: [id number] : 1965 58 From: Anny Lloyd CRNA PCP: Dr. Elvin Prieto, DO Status:[facility] Y Race: C Location: EN Anesthesia Postop [...] Date Anny Weinstein Signature: Date CC: Signed [facility] Internal Medicine Office Vis ladan 07-18-2024 Internal Medicine Office Visit [facility] [address] [place] [address] [place] [address] OFFICE VISIT Date of Service: 07/18/24 MR#: [id number] Acct: [id number] Name: SIMON GRANADO Rep #: [id number] : 1965 Provider: Dr. Elvin morrell, DO Age/Sex: 58/M Location: [facility] Status: Signed Intake Vital Signs 04/20/23 14:02 [...] room air Intake Visit Reasons: MOLE REMOVAL Assistant Editor Required: No Accompanied by: Is patient in [...] size. None itch, hurt, crust or seep. PENDING SALE TO [facility] Medical History Family history of colon cancer [...] No Coding Level of Care Code Attention Meteorology Professor Diagnoses Seborrheic keratosis L82.1 Assessment and Plan As (more content not included)... Normal [facility] Anion gap in Serum or Plasma Ordered By: Elvin Prieto on 07-17-2024 Anion gap [Moles/Vol] 11 mmol/L 08-16 [facility] BUN/creatinine ratioOrdered By: Elvin Prieto on 07-17-2024 Urea nitrogen/Creatinine [Mass ratio] 14.5 mg/mg 01-21 [facility] Bilirubin, totalOrdered By: Elvin Prieto on 07-17-2024 Bilirubin [Mass/Vol] 0.55 mg/dL 0.00-1.30 [facility] Carbon dioxide, total [Moles /volume] in Central venous bloodOrdered By: Elvin Prieto on 07-17-2024 CO2 [Moles/Vol] 22.1 mmol/L 21.0-32.0 [facility] Chloride assayOrdered By: Do doris Prieto on 07-17-2024 Chloride [Moles/Vol] 104 mmol/L 98-108 [facility] Comprehensive Metabolic Prof ilon 07-17-2024 Albumin [Mass/Vol] 4.1 g/dL Normal 3.4-4.8 [facility] Comment on above: Performed By: #### L 500.4050 #### [facility] [address] [place], [place], [address] Albumin/Globulin [Mass ratio] 1.6 {ratio} Normal 0.9-2.4 [facility] Comment on above: Performed By: #### L 500.4050 #### [facility] [address] [place], [address] ALK PHOS 62 U/L Normal 40-129 [facility] Comment on above: Performed By: #### L 500.4050 #### [facility] [address] [place], [address] ALT [Catalytic activity/Vol] 12 U/L Normal <=46 [facility] Comment on above: Performed By: #### L 500.4050 #### [facility] [address] [place], [address] AST [Catalytic activity/Vol] 19 U/L Normal <=37 [facility] Comment on above: Performed By: #### L 500.4050 #### [facility] [address] [place], [address] Bilirubin [Mass/Vol] 0.55 mg/dL Normal 0.00-1.30 [facility] Comment on above: Performed By: #### L 500.4050 #### [facility] [address] [place], [address] BUN/CRE 14.5 RATIO Normal 10-20 [facility] Comment on above: Performed By: #### L 500.4050 #### [facility] [address] [place], [address] Calcium [Mass/Vol] 9.2 mg/dL Normal 7.6-11.0 [facility] Comment on above: Performed By: #### L 500.4050 #### [facility] [address] [place], [address] Chloride [Moles/Vol] 104 mmol/L Normal 98-108 [facility] Comment on above: Performed By: #### L 500.4050 #### [facility] [address] [place], [address] CO2 [Moles/Vol] 22.1 mmol/L Normal 21.0-32.0 [facility] Comment on above: Performed By: #### L 500.4050 #### [facility] [address] [place], [address] Creatinine [Mass/Vol] 1.28 mg/dL High 0.70-1.20 [facility] Comment on above: Performed By: #### L 500.4050 #### [facility] [address] [place], [address] GAP 11 Normal 5-15 [facility] Comment on above: Performed By: #### L 500.4050 #### [facility] [address] [place], [address] GFR/1.73 sq M.predicted among non-blacks MDRD (S/P/Bld) [Vol rate/Area] 64 mL/min/{1.73_m2} Normal >60 [facility] Comment on above: Result Comment: mL/m in/1.73m2 CKD-EPI Creatinine Equation (2020) Performed By: #### L 500.4050 #### [facility] [address] [place], [address] Globulin (S) [Mass/Vol] 2.5 g/dL Normal 2.2-4.2 [facility] Comment on above: Performed By: #### L 500.4050 #### [facility] [address] [place], [address] Glucose [Mass/Vol] 124 mg/dL High 70-99 [facility] Comment on above: Performed By: #### L 500.4050 #### [facility] [address] [place], [address] Potassium [Moles/Vol] 4.3 mmol/L Normal 3.3-5.1 [facility] Comment on above: Performed By: #### L 500.4050 #### [facility] [address] [place], [address] Sodium [Moles/Vol] 137 mmol/L Normal 133-145 [facility] Comment on above: Performed By: #### L 500.4050 #### [facility] [address] [place], [address] T PROT 6.6 g/dL Normal 5.9-8.4 [facility] Comment on above: Performed By: #### L 500.4050 #### [facility] [address] [place], [address] Urea nitrogen [Mass/Vol] 19 mg/dL Normal 4-19 [facility] Comment on above: Performed By: #### L 500.4050 #### [facility] [address] [place], [place], [id number] GFR/1.73 sq M.predicted reji g non-blacks MDRD (S/P/Bld) [Vol rate/Area]Ordered By: Elvin Prieto on 07-17-2024 Estimated GFR (MDRD) Non-Af Amer 64 >60 [facility] Comment on above: mL/min/1.73m2 CKD-EP I Creatinine Equation (2020) Glomerular filtration rate ( GFR) estimation/1.73 sq m using serum, plasma, or whole bOrdered By: Elvin Prieto on 07-17-2024 GFR/1.73 sq M.predicted among non-blacks MDRD (S/P/Bld) [Vol rate/Area] 64 mL/min/{1.73_m2} >60 [facility] Comment on above: mL/min/1.73m2 CKD-EP I Creatinine Equation (2020) Internal Medicine Office Vis itobrianne 07-17-2024 Internal Medicine Office Visit [facility] [address] [place], [place] [address] OFFICE VISIT Date of Service: 07/17/24 MR#: [id number] Acct: [id number] Name: SIMON GRANADO Rep #: [id number] : 1965 Provider: Dr. Elvin Trevizo Br porsche, DO Age/Sex: 58/M Location: [facility] Status: Signed Intake Vital Signs 04/20/23 14:02 [...] room air Intake Visit Reasons: ANNUAL PHYSICAL Assistant Editor Required: No Is patient in pain?: No Allergies No Known Allergies Allergy (Verified 07/17/24 13:49) Medications ???Medication ???Instructions ???Recorded ???Confirmed ???Type NK 06/14/24 07/17/24 History Nurse's Note: Last colonscopy done 2019 due every 5 years scheduled for new one 08/31/24 w/ Dr. Ritchie. PENDING SALE TO [facility] Medical History Family history of colon cancer [...] oriented x3 Limitations: mental status not altered [facility] Head: normal to inspection Ears: hearing grossly [...] no hyperacti (more content not included)... Normal [facility] Laboratory - Chemistry and C hemistry - challengeOrdered By: Elvin Prieto on 07-17-2024 AST [Catalytic activity/Vol] 19 U/L <38 [facility] Potassium (Unsp spec) [Mass/ Vol]Ordered By: Elvin Prieto on 07-17-2024 Potassium [Moles/Vol] 4.3 mmol/L 3.3-5.1 [facility] Potassium measurement (mass/ volume)Ordered By: Elvin Prieto on 07-17-2024 Potassium (Unsp spec) [Mass/Vol] 4.3 mmol/L 3.3-5.1 [facility] Serum creatinine measurement (mass/volume)Ordered By: Elvin Prieto on 07-17-2024 Creatinine [Mass/Vol] 1.28 mg/dL High 0.70-1.20 [facility] Serum globulin measurementOr dered By: Elvin Prieto 07-17-2024 Globulin (S) [Mass/Vol] 2.5 g/dL 2.2-4.2 [facility] Serum glucose measurement (m ass/volume)Ordered By: Elvin Prieto 07-17-2024 Glucose [Mass/Vol] 124 mg/dL High 70-99 [facility] Serum or plasma alanine moeller otransferase (ALT) measurementOrdered By: Elvin Prieto 07-17-2024 ALT [Catalytic activity/Vol] 12 U/L <47 [facility] Serum or plasma albumin humble urement (mass/volume)Ordered By: Elvin Prieto 07-17-2024 Albumin [Mass/Vol] 4.1 g/dL 3.4-4.8 [facility] Serum or plasma albumin/glob ulin mass ratioOrdered By: Elvin Prieto 07-17-2024 Albumin/Globulin [Mass ratio] 1.6 {ratio} 0.9-2.4 [facility] Serum or plasma alkaline allyssa sphatase measurementOrdered By: Elvin Prieto 07-17-2024 ALP [Catalytic activity/Vol] 62 U/L 40-129 [facility] Serum or plasma calcium humble urement (mass/volume)Ordered By: Elvin Prieto 07-17-2024 Calcium [Mass/Vol] 9.2 mg/dL 7.6-11.0 [facility] Serum or plasma urea nitroge n measurement (mass/volume)Ordered By: Elvin Prieto on 07-17-2024 Urea nitrogen [Mass/Vol] 19 mg/dL 4-19 [facility] Sodium levelOrdered By: Vlad Prieto on 07-17-2024 Sodium [Moles/Vol] 137 mmol/L 133-145 [facility] Total proteinOrdered By: Jj Prieto on 07-17-2024 Protein [Mass/Vol] 6.6 g/dL 5.9-8.4 [facility] Basophil percentageOrdered B y: Elvin Prieto on 04-20-2023 Basophil percentage 0.60 ng/mL 0.0-4.0 [facility] Comment on above: This test was perfor med using the TPSA assay method for the[employer] chemistry system. Values obtained with differentassay methods cannot be used interchangably.When changing PSA assays in the course of monitoring apatient, additional sequential testing should be carriedout to confirm baseline values. Bilirubin [Mass/Vol] 0.70 mg/dL 0.20-1.00 [facility] Comment on above: For patients on eltr ombopag therapy, use of [employer] TBIL is not recommended. Chloride [Moles/Vol] 107 mmol/L 98-107 [facility] Glucose [Mass/Vol] 100 mg/dL 74-106 [facility] Comment on above: Fasting Glucose resu lt from 100 to 125 mg/dL suggests IMPAIRED HOMEOSTASIS per A.D.A. criteria. Potassium [Moles/Vol] 4.0 mmol/L 3.5-5.1 [facility] Protein [Mass/Vol] 7.2 g/dL 6.4-8.2 [facility] Sodium [Moles/Vol] 138 mmol/L 136-145 [facility] Laboratory - Chemistry and C hemistry - challengeOrdered By: Elvin Conner on 04-20-2023 Albumin/Globulin [Mass ratio] 1.2 {ratio} 0.9-2.4 [facility] ALP [Catalytic activity/Vol] 68 U/L 45-117 [facility] ALT [Catalytic activity/Vol] 20 U/L 16-61 [facility] CO2 [Moles/Vol] 25.0 mmol/L 21.0-32.0 [facility] Globulin (S) [Mass/Vol] 3.2 g/dL 2.2-4.2 [facility] Urea nitrogen/Creatinine [Mass ratio] 10.9 mg/mg 10-20 [facility] No Panel InformationOrdered By: Elvin Prieto on 04-20-2023 Estimated GFR (MDRD) Amer 74 mL/min >60 [facility] Comment on above: GFR Calc Estimated GFR (MDRD) Non-Af Amer 61 mL/min >60 [facility] Comment on above: Non- GFR Calc Serum or plasma calcium humble urement (mass/volume)Ordered By: Elvin Prieto on 04-20-2023 Calcium [Mass/Vol] 9.1 mg/dL 8.5-10.1 [facility] Serum or plasma creatinine m easurement (mass/volume)Ordered By: Elvin Prieto on 04-20-2023 Creatinine [Mass/Vol] 1.28 mg/dL 0.70-1.30 [facility] Comment on above: The validity of the calculated GFR & GFRAA in patients over 70 years has not been determined. Clinical correlation is essential. Serum or plasma urea nitroge n measurement (mass/volume)Ordered By: Elvin Prieto on 04-20-2023 Urea nitrogen [Mass/Vol] 14 mg/dL 7-18 [facility] Thin prep Papanicolaou smear with manual screeningOrdered By: Elvin Prieto on 04-20-2023 Thin prep Papanicolaou smear with manual screening 4.0 g/dL 3.2-5.0 [facility] Thin prep Papanicolaou smear with manual screening 16 U/L 15-37 [facility] Thin prep Papanicolaou smear with manual screening 6 5-15 [facility] ED Note-Provideron 8 ED Note-Provider Normal [facility] ([place]) Pat Eduon 07-09-2017 [facility] ([place] Patient Summary Documentson 07-09-2017 Patient Summary Documents Normal [facility] [place] XR FOOT MINIMUM 3 VIEWS LEFT on [...] AM Sign Date: 07/09/2017 9:10:43 AM Normal [facility] ([place] Vital Signs Date Time Vital Sign Value Performing Clinician Faci lity 10-10-2024 14:11-0400 Body height 195.[address] Elvin Prieto DO Work Phone: [facility] 10-10-2024 14:11-0400 Body mass index (BMI) [Ratio] 27.3 kg/m2 Dr. Elvin Prieto DO Work Phone: [facility] 10-10-2024 14:11-0400 Body temperature 97.8 [degF] Dr. Elvin Prieto DO Work Phone: [facility] 10-10-2024 14:11-0400 Body weight 104.[address] Elvin Prieto DO Work Phone: [facility] 10-10-2024 14:11-0400 Diastolic blood pressure 74 mm[Hg] Dr. Elvin Prieto DO Work Phone: [facility] 10-10-2024 14:11-0400 Heart rate 67 /min Dr. Elvin Prieto DO Work Phone: [facility] 10-10-2024 14:11-0400 Respiratory rate 16 /min Dr. Elvin Prieto DO Work Phone: [facility] 10-10-2024 14:11-0400 SaO2% (BldA) [Mass fraction] 97 % Dr. Elvin Prieto DO Work Phone: [facility] 10-10-2024 14:11-0400 Systolic blood pressure 126 mm[Hg] Dr. Elvin Prieto DO Work Phone: [facility] 08-31-2024 13:00-0400 Body temperature 97.3 [degF] Dr. Elvin Prieto DO Work Phone: [facility] 08-31-2024 13:00-0400 Diastolic blood pressure 70 mm[Hg] Dr. Elvin Prieto DO Work Phone: [facility] 08-31-2024 13:00-0400 Heart rate 54 /min Dr. Elvin Prieto DO Work Phone: [facility] 08-31-2024 13:00-0400 Respiratory rate 16 /min Dr. Elvin Prieto DO Work Phone: [facility] 08-31-2024 13:00-0400 SaO2% (BldA) [Mass fraction] 93 % Dr. Elvin Prieto DO Work Phone: [facility] 08-31-2024 13:00-0400 Systolic blood pressure 100 mm[Hg] Dr. Elvin Prieto DO Work Phone: [facility] 08-31-2024 11:24-0400 Body height 195.[address] Elvin Prieto DO Work Phone: [facility] 08-31-2024 11:24-0400 Body mass index (BMI) [Ratio] 27.1 kg/m2 Dr. Elvin Prieto DO Work Phone: [facility] 08-31-2024 11:24-0400 Body weight [address] Elvin Prieto DO Work Phone: [facility] 07-18-2024 14:08-0400 Body height 195.[address] Elvin Prieto DO Work Phone: [facility] 07-18-2024 14:08-0400 Body mass index (BMI) [Ratio] 28 kg/m2 Dr. Elvin Prieto DO Work Phone: [facility] 07-18-2024 14:08-0400 Body temperature 97.7 [degF] Dr. Elvin Prieto DO Work Phone: [facility] 07-18-2024 14:08-0400 Body weight 107.[address] Elvin Prieto DO Work Phone: [facility] 07-18-2024 14:08-0400 Diastolic blood pressure 82 mm[Hg] Dr. Elvin Prieto DO Work Phone: [facility] 07-18-2024 14:08-0400 Heart rate 70 /min Dr. Elvin Prieto DO Work Phone: [facility] 07-18-2024 14:08-0400 Respiratory rate 14 /min Dr. Elvin Prieto DO Work Phone: [facility] 07-18-2024 14:08-0400 SaO2% (BldA) [Mass fraction] 96 % Dr. Elvin Prieto DO Work Phone: [facility] 07-18-2024 14:08-0400 Systolic blood pressure 132 mm[Hg] Dr. Elvin Prieto DO Work Phone: [facility] 07-17-2024 14:00-0400 Body mass index (BMI) [Ratio] 28 kg/m2 Dr. Elvin Prieto DO Work Phone: [facility] 07-17-2024 14:00-0400 Body temperature 97.3 [degF] Dr. Elvin Prieto DO Work Phone: [facility] 07-17-2024 14:00-0400 Body weight 107.[address] Elvin Prieto DO Work Phone: [facility] 07-17-2024 14:00-0400 Diastolic blood pressure 62 mm[Hg] Dr. Elvin Prieto DO Work Phone: [facility] 07-17-2024 14:00-0400 Heart rate 73 /min Dr. Elvin Prieto DO Work Phone: [facility] 07-17-2024 14:00-0400 Respiratory rate 14 /min Dr. Elvin Prieto DO Work Phone: [facility] 07-17-2024 14:00-0400 SaO2% (BldA) [Mass fraction] 93 % Dr. Elvin Prieto DO Work Phone: [facility] 07-17-2024 14:00-0400 Systolic blood pressure 114 mm[Hg] Dr. Elvin Prieto DO Work Phone: [facility] 06-14-2024 11:53-0400 Body mass index (BMI) [Ratio] 27.2 kg/m2 Dr. Elvin Prieto DO Work Phone: [facility] 06-14-2024 11:53-0400 Body weight 104.[address] Elvin Prieto DO Work Phone: [facility] 04-20-2023 14:02-0500 Body height 195.[address] Elvin Prieto Work Phone: [facility] 04-20-2023 14:02-0500 Body mass index (BMI) [Ratio] 27.5 kg/m2 Dr. Elvin Prieto Work Phone: [facility] 04-20-2023 14:02-0500 Body temperature 96.9 [degF] Dr. Elvin Prieto Work Phone: [facility] 04-20-2023 14:02-0500 Body weight 105.[address] Elvin Prieto Work Phone: [facility] 04-20-2023 14:02-0500 Diastolic blood pressure 82 mm[Hg] Dr. Elvin Prieto Work Phone: [facility] 04-20-2023 14:02-0500 Heart rate 58 /min Dr. Elvin Prieto Work Phone: [facility] 04-20-2023 14:02-0500 SaO2% (BldA) [Mass fraction] 97 % Dr. Elvin Prieto Work Phone: [facility] [facility] 04-20-2023 14:02-0500 Systolic blood pressure 128 mm[Hg] Dr. Elvin Prieto Work Phone: [facility] 01-01-2022 09:25-0400 Body height 195.[address] Elvin Prieto Work Phone: [facility] Work Phone: 01-01-2022 09:25-0400 Body mass index (BMI) [Ratio] 27.2 kg/m2 Dr. Elvin Prieto Work Phone: [facility] Work Phone: 01-01-2022 09:25-0400 Body temperature 97.2 [degF] Dr. Elvin Prieto Work Phone: [facility] Work Phone: 01-01-2022 09:25-0400 Body weight 104.[address] Elvin Prieto Work Phone: [facility] Work Phone: 01-01-2022 09:25-0400 Diastolic blood pressure 70 mm[Hg] Dr. Elvin Prieto Work Phone: [facility] Work Phone: 01-01-2022 09:25-0400 Heart rate 66 /min Dr. Elvin Prieto Work Phone: [facility] Work Phone: 01-01-2022 09:25-0400 Respiratory rate 16 /min Dr. Elvin Prieto Work Phone: [facility] Work Phone: 01-01-2022 09:25-0400 SaO2% (BldA) [Mass fraction] 98 % Dr. Elvin Prieto Work Phone: [facility] Work Phone: 01-01-2022 09:25-0400 Systolic blood pressure 100 mm[Hg] Dr. Elvin Prieto Work Phone: [facility] Work Phone: Encounters Encounter Date Encounter Type Care Provider Facility Start: 11-07-2024 ambulatory Juni RECIO Facilit y:[facility] Start: 10-12-2024 End: 10-12-[address] Elvin Prieto DO Work Phone: -[facility] Start: 10-12-2024 End: 10-12-[address] Elvin Trevizo DO -[facility] Work Phone: Start: 10-12-2024 End: 10-12-2024 ambulatory Elvin Prieto Facility:[facility] Start: 10-10-2024 End: 10-10-[address] Elvin Trevizo DO -[facility] Work Phone: Start: 10-10-2024 End: 10-10-[address] Elvin Prieto DO Work Phone: -[facility] Start: 08-31-2024 ambulatory Elvin Prieto Facilit y:[facility] Start: 08-31-2024 Non-patient / Non-visit Dr. Dorita Ritchie MD -[facility] Start: 08-31-2024 End: 08-31-2024 Admission to same day surgery center Dr. Fernando Ritchie MD -Endoscopy Work Phone: Start: 08-31-2024 End: 08-31-[address] Elvin Prieto DO Work Phone: [facility] Work Phone: Start: 07-19-2024 Encounter for genera l adult medical examination without abnormal findings Elvin Prieto [facility] Start: 07-18-2024 End: 07-18-[address] Elvin Trevizo DO -[facility] Work Phone: Start: 07-18-2024 End: 07-18-2024 ambulatory Elvin Prieto Facility:[facility] Start: 07-17-2024 End: 07-17-[address] Elvin Trevizo DO -[facility] Work Phone: Start: 07-17-2024 End: 07-17-[address] Elvin Prieto DO Work Phone: [facility] Work Phone: Start: 07-17-2024 End: 07-17-2024 ambulatory Elvin Prieto Facility:[facility] Start: 06-14-2024 Non-patient / Non-visit Dr. Tomas DO Work Phone: -[facility] Work Phone: Start: 06-14-2024 ambulatory Elvin Prieto Facilit y:[facility] Start: 04-20-2023 End: 04-20-[address] Elvin Prieto Work Phone: [facility] Work Phone: Start: 04-20-2023 End: 04-20-[address] Elvin Prieto Work Phone: [facility] Work Phone: Start: 02-05-2022 End: 02-05-[address] Elvin Prieto Work Phone: [facility] Work Phone: Start: 02-05-2022 End: 02-05-[address] Elvin Prieto Work Phone: [facility] Start: 02-05-[address] Kailey Prieto Work Phone: [facility] Start: 01-01-2022 End: 01-01-[address] Elvin Prieto Work Phone: [facility] Start: 07-09-2017 End: 07-09-2017 Emergency department patient visit ANGEL LUIS MONIQUE Facility:[facility] Procedures Date Procedure Procedure Detail Performing Clinician Start: 10-12-2024 X-ray of cervical spine Dr. Elvin Prieto DO Work Phone: Start: 08-31-[address] Biju Prieto DO Work Phone: Plan of Treatment Date Care Activity Detail Author Start: 08-31-2024 Colonoscopy flx dx w/collj spec when pfrmd DIAGNOSTIC COLONOSCOPY [facility] Start: 08-31-2024 Patient discharge [facility] Start: 01-01-2022 Patient referral [facility] Work Phone: Colonoscopy [facility] Patient referral [facility] Work Phone: XR Cervical spine 2 or 3 Views [facility] Payers Date Payer Category Payer Private Health Insurance [id number] 2024 Self-pay [id number] 2024 Private Health Insurance [id number] 2017 Private Health Insurance [id number] Unknown [facility] PACKAGE PLAN [id number] Unknown [id number] Unknown [id number] Unknown [id number] Unknown [id number] Unknown [id number] Unknown [id number] Unknown [id number] Unknown [id number] Unknown [id number] Social History Date Type Detail Facility Start: 01-01-2022 End: 04-20-2023 Tobacco smoking status NHIS Unknown if ever smoked [facility] Start: 05-23-2019 Non-smoker [facility] Start: 1965 Sex Assigned At Male [facility] Start: 07-17-2024 End: 08-31-2024 Tobacco smoking status NHIS Never smoked tobacco (finding) [facility] Start: 07-19-2024 Sex Male (finding) [facility] Gender Identity Identifies as ma le gender (finding) [facility] Sexual Orientation Heterosexual (finding) [facility] Goals Date Patient Goal Desired Activity /State Mental Status Date Assessment Result Facility 08-31-2024 Cognitive function [facility] Work Phone: 08-31-2024 Cognitive function Patient Orien tation Person;Place;Time [facility] Work Phone: Clinical Notes 07-17-2024 to 10-12-2024 Note Date & Type Note Facility 10-12-2024 Radiology Diagnostic study note [facility] Imaging Services [address] [place] [address] Cerv Spine 2 or 3 Views MR#: [id number] Acct: [id number] Name: SIMON GRANADO Rep #: [id number] : 1965 M 59 From: Elder Cevallos MD PCP: Dr. Elvin Prieto DO Status: RE G CLI Study:Cerv Spine 2 or 3 Views Date of Exam: 10/12/24 Exam# [id number] Ordering Dr: Do doris Prieto DO PROCEDURE: [...] Multilevel disc space narrowing. Disclaimer: Reading Location: [facility] CC: Dr. Elvin Prieto, DO ~ Rim Fire Charger Operator: Signed [facility] 10-10-2024 Progress note [facility] 10-10-2024 Progress note Note Date/Time October 10, 2024 2:35pm [facility] [address] [place] [address] [place] [address] OFFICE VISIT Date of Service: 10/10/24 MR#: [id number] Acct: [id number] Name: SIMON GRANADO Rep #: [id number] : 1965 Provider: Dr. Vlad Prieto DO Age/Sex: 59/M Location: 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 Work Phone: 1(791) 651-152605-30-2025 Consult note Author Gio Romero [facility] Note Date/Time August 31, 2024 11:52 am [facility] Medical Records Department [address] [place] [address] Pre-Anesthesia Evaluation 08/31/24 1146 MR#: [id number] Acct: [id number] Name: SIMON GRANADO Rep #:[id number] [facility] : 1965 58 From: Gio Romero MD PCP: Dr. 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 Hx Hospitalization No 08/29/24 10:51 Any Problems [...] sips of water?: No PONV PONV - 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: PONV - 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 Female No 08/29/24 10:51 HX of Motion [...] 08/31/24 11:24 Respiratory Assessment Respiratory Assessment - 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: Respiratory Tract Infection Hx - 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 Hx Respiratory Tract Infection No 08/29/24 10:51 STOP Sleep Apnea STOP Sleep Apnea - 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: STOP Sleep Apnea - 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 Hx Hypertension No 08/29/24 10:51 Hx Sleep [...] Tobacco Use History Tobacco Use History - 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: Tobacco Use History - 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 Tobacco Use Smoking Status Never smoker 08/29/24 10:51 Hx Tobacco Use No 08/29/24 10:51 Years Smoking Packs Smoked per Day Smoking Cessation Date was within the last 15 years Hx Smoking Cessation Date Hx Smoking Cessation Counseling Hematologic Medial History Hematologic Hx - 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: 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 [place] [address] Anesthesia Postop Eval I 08/31/24 1244 MR#: [id number] Acct: [id number] Name: SIMON GRANADO Rep #:[id number] : 1965 58 From: Matthew Hernadez PCP: Dr. Elvin Prieto, DO Status:PARAS PEREZ Y Race: C Location: [place] [address] Anesthesia: Postop Eval I Current Vital Signs [...] Matthew Weinstein Signature: Date CC: ~ Signed [facility]05-30-2025 Procedure note [facility] Medical Records Department [address] [place] [address] Colonoscopy Report MR#: [id number] Acct: [id number] Name: SIMON GRANADO Rep #:[id number] : 1965 58 From: Fernando ames MD PCP: Dr. Elvin Prieto, DO Status:[facility] Patient Name: Simon Granado Procedure Date: 08/31/2024 [...] screening purposes. Procedure Code(s): --- Professional --- 23514, Colonoscopy, flexible; diagnostic, including collection of specimen(s) by brushing or washing, when performed (separate procedure) Diagnosis Code(s): --- Professional --- Z80.0, Family history of malignant neoplasm of digestive organs CPT copyright 2021 [employer]. All rights reserved. The codes documented in this report are preliminary and upon auditing manager review may be revised to meet current compliance requirements. Fernando Ritchie MD 08/31/2024 12:37:49 PM This report has been signed electronically. Number of Addenda: 0 Note Initiated On: 08/31/2024 12:05 PM 08/31/24 1238 Date _ Fernando Weinstein Signature: Date (if indicated) CC: Dr. Fernanod Ritchie MD; Dr. Elvin Prieto, DO ~ Date Dictated: 08/31/24 1205 Date Transcribed: Rim Fire Charger Operator: AC Signed [facility]05-30-2025 Procedure note [facility] Medical Records Department [address] [place] [address] Operative Report - CC Letter MR#: [id number] Acct: [id number] Name: SIMON GRANADO Rep #:[id number] : 1965 58 From: Fernando ames MD PCP: Dr. Elvin Prieto, DO Status:RE [facility] 08/31/2024 Elvin Prieto Re : Colonoscopy [...] ~ Date Dictated: 08/31/24 1205 Date Transcribed: Rim Fire Charger Operator: ANJEL Signed [facility]05-30-2025 History and physical note [facility] Medical Records Department [address] [place] [address] History & Physical Exam 08/31/24 1210 MR#: [id number] Acct: [id number] Name: SIMON GRANADO Rep #:[id number] : 1965 58 From: Fernando ames MD PCP: Dr. Elvin Prieto, Status:[facility] Location: [place] [address] HPI - General HPI Narrative SIMON GRANADO, is a 58 M who presents for surveillance colonoscopy. His last colonoscopy was 5 yearsago and was normal. He has colonoscopies every 5 years due to maternal family history of colon cancer under age 60. He denies abdominal pain or blood in the stool. PENDING SALE TO [facility] Medical History Wears glasses Non-smoker Family history [...] 11:22) Discharge Is Pt Admitted From a Care Home, or a Halfway: No After D/C, Where Do you Plan [...] proceed with procedure. Fernando Ritchie MD Pager: [facility] [address] [place] [address], [address] [place] [address] Office: Surgery Risks - Colonoscopy Risks Include but are not Limited To: Risks include but are not limited to: Bleeding, perforation requiring further surgery, inability to complete colonoscopy requiring barium enema. 08/31/24 1211 Cosigner Signature (if applicable): CC: Dr. Fernando Ritchie MD; Dr. Elvin Prieto, DO~ Signed [facility]05-30-2025 [facility] Medical Records Department [address] [place] [address] History Physical Exam 08/31/24 1210 MR#: [id number] Acct: [id number] Name: SIMON GRANADO Rep #: [id number] : 1965 58 From: Fernando Ritchie MD PCP: Dr. Elvin Prieto, DO Status:[facility] Location: [address] - [facility] HPI Narrative SIMON GRANADO, is a 58 M who presents for surveillance colonoscopy. His last colonoscopy was 5 years ago and was normal. He has colonoscopies every 5 years due to maternal family history of colon cancer under age 60. He denies abdominal pain or blood in the stool. PENDING SALE TO [facility] Medical History Wears glasses Non-smoker Family history [...] 11:22) Discharge Is Pt Admitted From a Care Home, or a Halfway: No After D/C, Where Do you Plan to Go: Return Home Vital Signs Vital Si (more content not included)...[facility]05-30-2025 Consult note [facility] Medical Records Department [address] [place] [address] Pre-Anesthesia Evaluation 08/31/24 1146 MR#: [id number] Acct: [id number] Name: SIMON GRANADO Rep #:[id number] : 1965 58 From: Gio Romero MD PCP: Dr. 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 Female No 08/29/24 10:51 HX of Motion [...] 08/31/24 11:24 Respiratory Assessment Respiratory Assessment - 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: Respiratory Tract Infection Hx - 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 Hx Respiratory Tract Infection No 08/29/24 10:51 STOP Sleep Apnea STOP Sleep Apnea - 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: STOP Sleep Apnea - 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 Hx Hypertension No 08/29/24 10:51 Hx Sleep [...] Tobacco Use History Tobacco Use History - 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: Tobacco Use History - 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 Tobacco Use Smoking Status Never smoker 08/29/24 10:51 Hx Tobacco Use No 08/29/24 10:51 Years Smoking Packs Smoked per Day Smoking Cessation Date was within the last 15 years Hx Smoking Cessation Date Hx Smoking Cessation Counseling Hematologic Medial History Hematologic Hx - 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: 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 Hx of Blood Transfusion No 08/29/24 10:51 [...] confused, unrespo /Reproduction History /Reproductive History - 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: /Reproductive Hx- 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 Hx Now No 08/29/24 10:51 Gestational Age [...] Gio Cabreraignomar Signature: Date CC: ~ Signed [facility]04-15-2025 Evaluation note* Diagnosis Onset Date Resolution Status Admit Date Annual physical exam acute Apri l 2024 1:47pm Seborrheic keratosis acute Apri l 2024 1:48pm [facility] Work Phone: 1(309) 179-332104-15-2025 Evaluation note* Diagnosis Onset Date Resolution Status Admit Date Annual physical exam acute Apri l 2024 1:47pm Seborrheic keratosis acute Apri l 2024 1:48pm Encounter for screening for malignant neoplasm of colon acute August 31, 2024 10:53am [facility] Work Phone: 1(493) 331-863604-15-2025 Evaluation note* Diagnosis Onset Date Resolution Status Admit Date Annual physical exam acute Apri l 2024 1:47pm Seborrheic keratosis acute Apri l 2024 1:48pm Encounter for screening for malignant neoplasm of colon acute August 31, 2024 10:53am Right arm weakness acute October 102024 1:59pm [facility] Work Phone: Consult note Author Matthew Hernadez [facility] Note Date/Time August 31, 2024 12:45 pm [facility] Medical Records Department [address] [place] [address] Anesthesia Postop Eval I 08/31/24 1244 MR#: [id number] Acct: [id number] Name: SIMON GRANADO EDFLORI Rep #:[id number] : 1965 58 From: Matthew Hernadez PCP: Dr. Elvin Prieto, DO Status:[facility] Y Race: C Location: [place] [address] Anesthesia: Postop Eval I Current Vital Signs [...] by Matthew Hernadez > Date _ Matthew eWinstein Signature: Date CC: ~ Signed [facility] Work Phone: evaluation note* Diagnosis Onset Date Resolution Status Neck pain noneactive [facility] Work Phone: Evaluation note* Diagnosis Onset Date Resolution Status Annual physical exam acute Urinary incontinence acute Erectile dysfunction chronic [facility] Work Phone: History and physical note Author Fernando Ritchie [facility] Note Date/Time August 31, 2024 12:11 pm [facility] Medical Records Department [address] [place] [address] History & Physical Exam 08/31/24 1210 MR#: [id number] Acct: [id number] Name: SIMON GRANADO AMBER Rep #:[id number] : 1965 58 From: Fernando ames MD PCP: Dr. Elvin Prieto, DO Status:[facility] Location: [place] [address]1 HPI - General HPI Narrative SIMON LOY, is a 58 M who presents for surveillance colonoscopy. His last colonoscopy was 5 years ago and was normal. He has colonoscopies every 5 years due to maternal family history of colon cancer under age 60. He denies abdominal pain or blood in the stool. PENDING SALE TO [facility] Medical History Wears glasses Non-smoker Family history [...] 11:22) Discharge Is Pt Admitted From a Care Home, or a Halfway: No After D/C, Where Do you Plan [...] proceed with procedure. Fernando Ritchie MD Pager: [facility] [address] [place] [address], [address] [place] [address] Office: Surgery Risks - Colonoscopy Risks Include but are not Limited To: Risks include but are not limited to: Bleeding, perforation requiring further surgery, inability to complete colonoscopy requiring barium enema. 08/31/24 1211 <Electronically signed by Fernando Ritchie MD> Cosigner Signature (if applicable): CC: Dr. Fernando Ritchie MD; Dr. Elvin Prieto, DO~ Signed [facility] Work Phone: Reason for referral (narrative)No reason for referral information availableWCosho[facility] Work Phone: Summary Purpose Family [...] Will Yes May 23 11:46am Power of Traditional Maori Health Practitioner Yes May 23, 2019 11:46am Advance Directive Response Recorded Date/ Time Do you have a Healthcare Power of Traditional Maori Health Practitioner? Yes August 29, 2024 10:51am Chief Complaint [...] section and content) DATE CREATED AUTHOR 09/22/2017 [facility] ([place]) DATE CREATED AUTHOR AUTHOR'S ORGANIZ [...] Care Provider Active Start: June 14, 2024 Formerly [facility] Attending Provider Active Start: [facility] 2024 Team Status: Inactive Member Role Status [...] Care Provider Active Start: June 14, 2024 Formerly [facility] Attending Provider Active Start: [facility] 2024 Team Status: Inactive Member Role/Relationship Status [...] BE BASED ON THE PRIMARY CLINICAL RECORDS. [email or web address] [facility]. provides no warranty or guarantee of the accuracy or completeness of information in this document.
== END | disposition home or self-care (01) ==
PROVIDERS: PCP Family Medicine; Referring Provider Physician Assistant; Visit Provider Physician Assistant
DX: M50.30 Other cervical disc degeneration, unspecified cervical region (principal)
CPT/HCPCS: 72141